=== PATIENT | female | born 1990 | race Caucasian/White ===

== ENCOUNTER 2016-08-08 09:50 | Emergency (ER) | payer SELFPAY ==
[~2016-08-08] VITALS: Ht 152.4 cm; Wt 100.0 kg
[2016-08-08 09:52] VITALS: BP 131/81; PULSE 78; RESP 20; TEMP 98.8; O2SAT 96
[2016-08-08 10:50] LABS: AUTOMATED NEUTROPHIL # 4.8 TH/MM3 (1.8-7.7); BASOPHIL % 0.6 % (0.0-2.0); EOSINOPHIL % 0.5 % (0.0-4.0); HEMATOCRIT 36.8 % (35.0-46.0); HEMO FLAGS DIFF FINAL; LYMPH % 25.7 % (9.0-44.0); LYMPHOCYTE # 1.9 TH/MM3 (1.0-4.8); MEAN CELL VOLUME 82.3 FL (80.0-100.0); MEAN CORPUSCULAR HGB CONC 34.1 % (32.0-36.0); MONO % 7.1 % (0.0-8.0); NEUT % 66.1 % (16.0-70.0); PLATELET COUNT 213 TH/MM3 (150-450); RED BLOOD COUNT 4.47 MIL/MM3 (4.00-5.30); RED CELL DISTRIBUTION WIDTH 13.2 % (11.6-17.2); WHITE BLOOD COUNT 7.3 TH/MM3 (4.0-11.0)
[2016-08-08 10:52] LABS: BACTERIA, URINE RARE /hpf; BLOOD, URINE NEG (NEG); COMMENT (UR) CULT NOT INDICATED; CULTURE IF INDICATED CULT NOT INDICATED; GLUCOSE,URINE NEG (NEG); KETONE, URINE NEG (NEG); MUCUS URINE FEW /lpf (OCC); NITRITE,URINE NEG (NEG); SQUAMOUS EPITHELIAL CELL URINE 9 /hpf (0-5); URINE COLOR YELLOW (YELLW/STRAW)
--- NOTE | 2016-08-08 11:01 | PD ---
HPI Chief Complaint: Abdominal Pain Time Seen by Provider: 10:02 Travel History International Travel<30 days: No Contact w/Intl Traveler<30days: No Traveled to known affect area: No History of Present Illness HPI Patient's 25 years old. She reports right upper quadrant pain for one night. She believes she is due to a positive urine test performed at outside hospital at the end of May (2 months ago) and at that time she was estimated to have been 8 weeks . She's had no vaginal bleeding or discharge. She has no urinary complaint. She has yet to follow with obstetrics. She reports with her prior she developed kidney injury. It feels similar today. PFS Past Medical History Medical History: Denies Significant Hx Influenza Vaccination: No ?: LMP: MAY 2016 : 2 Para: 1 Past Surgical History Other Surgery: Yes (tear duck ) Social History Alcohol Use: No Tobacco Use: No Substance Use: No Allergies-Medications Reported Meds & Prescriptions Reported Meds & Active Scripts Active Keflex (Cephalexin) 250 Mg Cap 250 Mg PO Q6H 5 Days Review of Systems Except as stated in HPI: all other systems reviewed are Neg General / Constitutional: No: Fever Physical Exam Narrative GENERAL: 25 yo F, WNWD, NAD, speaking full sentences SKIN: Warm and dry. HEAD: Atraumatic. Normocephalic. EYES: Pupils equal and round. No scleral icterus. No injection or drainage. ENT: No nasal bleeding or discharge. Mucous membranes pink and moist. NECK: Trachea midline. No JVD. CARDIOVASCULAR: Regular rate and rhythm. RESPIRATORY: No accessory muscle use. Clear to auscultation. Breath sounds equal bilaterally. GASTROINTESTINAL: Soft. Minimal tenderness to percussion R flank. No focal abdominal tenderness. MUSCULOSKELETAL: Extremities without clubbing, cyanosis, or edema. No obvious deformities. NEUROLOGICAL: Awake and alert. No obvious cranial nerve deficits. Motor grossly within normal limits. Five out of 5 muscle strength in the arms and legs. Normal speech. PSYCHIATRIC: Appropriate mood and affect; insight and judgment normal. Data Data Last Documented VS Vital Signs Date Time Temp Pulse Resp B/P Pulse Ox O2 Delivery O2 Flow Rate FiO2 08/08/16 13:53 80 15 123/68 100 08/08/16 09:52 98.8 Room Air VS reviewed Orders Beta Hcg (Quant/Titer) (08/08/16 10:21) Complete Blood Count With Diff (08/08/16 10:21) Comprehensive Metabolic Panel (08/08/16 10:21) Urinalysis - C+S If Indicated (08/08/16 10:21) Iv Access Insert/Monitor (08/08/16 10:21) Us Pelvis (Ques Pr/Ect)W Trans (08/08/16 ) Labs Laboratory Tests Test 08/08/16 10:30 White Blood Count 7.3 TH/MM3 Red Blood Count 4.47 MIL/MM3 Hemoglobin 12.5 GM/DL Hematocrit 36.8 % Mean Corpuscular Volume 82.3 FL Mean Corpuscular Hemoglobin 28.0 PG Mean Corpuscular Hemoglobin 34.1 % Concent Red Cell Distribution Width 13.2 % Platelet Count 213 TH/MM3 Mean Platelet Volume 9.6 FL Neutrophils (%) (Auto) 66.1 % Lymphocytes (%) (Auto) 25.7 % Monocytes (%) (Auto) 7.1 % Eosinophils (%) (Auto) 0.5 % Basophils (%) (Auto) 0.6 % Neutrophils # (Auto) 4.8 TH/MM3 Lymphocytes # (Auto) 1.9 TH/MM3 Monocytes # (Auto) 0.5 TH/MM3 Eosinophils # (Auto) 0.0 TH/MM3 Basophils # (Auto) 0.0 TH/MM3 CBC Comment DIFF FINAL Differential Comment Urine Color YELLOW Urine Turbidity HAZY Urine pH 6.0 Urine Specific [place] 1.023 Urine Protein TRACE mg/dL Urine Glucose (UA) NEG mg/dL Urine Ketones NEG mg/dL Urine Occult Blood NEG Urine Nitrite NEG Urine Bilirubin NEG Urine Urobilinogen LESS THAN 2.0 MG/DL Urine Leukocyte Esterase MOD Urine RBC 4 /hpf Urine WBC 1 /hpf Urine Squamous Epithelial 9 /hpf Cells Urine Bacteria RARE /hpf Urine Mucus FEW /lpf Microscopic Urinalysis Comment CULT NOT INDICATED Sodium Level 138 MEQ/L Potassium Level 3.6 MEQ/L Chloride Level 106 MEQ/L Carbon Dioxide Level 24.3 MEQ/L Anion Gap 8 MEQ/L Blood Urea Nitrogen 5 MG/DL Creatinine 0.55 MG/DL Estimat Glomerular Filtration 137 ML/MIN Rate Random Glucose 95 MG/DL Calcium Level 8.6 MG/DL Total Bilirubin 0.2 MG/DL Aspartate Amino Transf 12 U/L (AST/SGOT) Alanine Aminotransferase 24 U/L (ALT/SGPT) Alkaline Phosphatase 62 U/L Total Protein 6.9 GM/DL Albumin 3.1 GM/DL Human Chorionic Gonadotropin, 1210 MIU/ML Quant MDM Medical Decision Making Medical Screen Exam Complete: Yes Emergency Medical Condition: Yes Medical Record Reviewed: Yes Differential Diagnosis Intrauterine , ectopic , renal failure, UTI, gallbladder disease, hepatic disease Narrative Course CBC & BMP Diagram 08/08/16 10:30 LFTs normal HCG 1210 UA poss bacteriuria As noted, no vaginal bleeding or discharge noted. Pt agrees to follow up with [facility] on Thursday. We discussed possibility of ectopic and patient verbalized understanding as well as return precautions. The patient is resting comfortably and feels better, is alert and in no distress. The patients results and examination findings were discussed. The repeat examination is unremarkable and benign. The history, exam, diagnostic testing, and current condition do not suggest any significant pathology to warrant further testing, continued ED treatment, admission, or surgical evaluation at this point. The vital signs have been stable. The patient does not have uncontrollable pain, intractable vomiting, or other significant symptoms. The patient's condition is stable and appropriate for discharge. The patient will pursue further outpatient evaluation with a primary care physician or other designated or consulting physician as indicated in the discharge instructions. The patient expressed understanding and was agreeable with this plan. Diagnosis Primary Impression: Abdominal pain Qualified Code: R10.11 - Right upper quadrant abdominal pain Additional Impression: Elevated serum hCG Referrals: Miroslava Hernandez MD 2 days Additional Instructions: You have a choice when it comes to health care, and we are glad that you chose [facility]. Hopefully, we have met your expectations on today's visit. You are welcome to return to [facility] at any time, as we are committed to meeting the health care needs of our community. Med/Other Pt SpecificInfo: Prescription(s) given, No Change to Meds Scripts Cephalexin (Keflex)250 Mg [id number] Mg PO Q6H 5 Days Ref 0 Prov:Yomi French MD 08/08/16 Disposition: 01 DISCHARGE HOME Condition: Stable Yomi French MD August 08, 2016 11:01
[2016-08-08 11:07] LABS: ANION GAP 8 MEQ/L (5-15); BICARBONATE 24.3 MEQ/L (21.0-32.0); BLOOD UREA NITROGEN 5 MG/DL (7-18); CHLORIDE 106 MEQ/L (98-107); GLOMERULAR FILTRATION RATE 137 ML/MIN (>89); POTASSIUM 3.6 MEQ/L (3.5-5.1); SODIUM (NA) 138 MEQ/L (136-145)
[2016-08-08 11:25] LABS: ALKALINE PHOSPHATASE 62 U/L (45-117); ALT (GPT) 24 U/L (10-53); AST (GOT) 12 U/L (15-37); BETA HCG QUANT 1210 MIU/ML (0-5); TOTAL BILIRUBIN ADULT 0.2 MG/DL (0.2-1.0)
[2016-08-08 13:53] VITALS: BP 123/68; PULSE 80; RESP 15; O2SAT 100
--- NOTE | 2016-08-08 14:30 | RADRPT ---
EXAM DATE/TIME: 08/08/2016 13:10 [facility] COMPARISON: No previous studies available for comparison. INDICATIONS : Pelvic pain. LAB(S): Beta-hC,210 MEDICAL HISTORY : Abdominal and pelvic pain. SURGICAL HISTORY : Tear duck surgery. ENCOUNTER: Initial ACUITY: 2 days PAIN SCORE: 8/10 LOCATION: Bilateral pelvis MEASUREMENTS: UTERUS: 8.8 x 6.1 x 5.0 cm ENDOMETRIAL STRIPE: 16 mm RIGHT OVARY: 2.6 x 2.9 x 2.5 cm LEFT OVARY: 3.6 x 3.1 x 1.4 cm FREE FLUID: Yes posterior cul de sac CROWN RUMP LENGTH: Nonvisualized = WKS DAYS FHR: Nonvisualized BPM FINDINGS: UTERUS: Small gestational sac measures 5 x 4 x 5 mm. No-year-old sac or pole. Hypoechoic area adjacent to the endometrium measures 4 x 2 x 4 mm. RIGHT OVARY: complex cystic lesion measures 14 x 12 x 10 mm. LEFT OVARY: Ovary contains no mass or significant cystic lesion. MISCELLANEOUS: Trace free fluid. CONCLUSION: 1. Small gestational sac versus pseudo-gestational sac measuring 5 mm. No yolk sac or pole seen at this time. This could be related to an early versus pseudo-. Ectopic not seen but not excluded. Close interval followup. 2. Possible small subchorionic hemorrhage measuring 4 x 2 x 4 mm. 3. Trace pelvic free fluid. 4. Complex cyst versus focal luteal cyst in the right ovary measuring 14 mm. Pola Alberto MD on August 08, 2016 at 14:26 Board Certified Radiologist. This report was verified electronically.
[2016-08-08] MEDS ORDERED: CEPH-459 PO (14:40)
== END 2016-08-08 15:12 | disposition home or self-care (01) ==
LOC: NEPE 09:50
DX: R10.11 Right upper quadrant pain (principal)
CPT/HCPCS: 76700; 76817; 80053; 81001; 84702; 85025; 99284

== ENCOUNTER 2016-08-12 15:27 | Emergency (ER) | payer SELFPAY ==
[~2016-08-12] VITALS: Ht 152.4 cm; Wt 100.0 kg
[~2016-08-12 15:27] MED LIST: CEPH-459 PO
[2016-08-12 15:29] VITALS: BP 134/88; PULSE 79; RESP 15; TEMP 98.2; O2SAT 99
--- NOTE | 2016-08-12 15:40 | PD ---
Physical Exam Date Seen by Provider: August 12, 2016 Time Seen by Provider: 15:38 Narrative 25 yo female here for recheck of . Seen here last week and told they could not see HR. recommended recheck. She comes here today to get checked. Complains of side pain. States having a rash secondary to caterpillar. Vitals sign stable. Patient awaiting bed placement. Data Data Last Documented VS Vital Signs Date Time Temp Pulse Resp B/P Pulse Ox O2 Delivery O2 Flow Rate FiO2 08/12/16 15:29 98.2 79 15 134/88 99 MDM Medical Record Reviewed: Yes Supervised Visit with SERG: No Eugenio Hurtado August 12, 2016 15:39
--- NOTE | 2016-08-12 16:31 | PD ---
HPI Chief Complaint: Related Problem Time Seen by Provider: 16:21 Travel History International Travel<30 days: No Contact w/Intl Traveler<30days: No Traveled to known affect area: No History of Present Illness HPI 25-year-old here for repeat checkup. Patient states that she was seen here on 08/08 with right sided abdominal pain. She was found to be . Her beta Quant was 1210. She had a ultrasound showing a gestational sac versus pseudo-gestational sac measuring 5 mm but no evidence of yolk sac or pole. Could not exclude ectopic . Possible small subchorionic hemorrhage measuring 4 x 2 x 4 mm with trace free fluid. In the interim patient has not had any pain. No vaginal bleeding. She presents back to the emergency department for repeat beta Quant. PFSH Past Medical History ?: LMP: 06/10/16 : 2 Para: 1 Past Surgical History Other Surgery: Yes (tear duck ) Social History Alcohol Use: No Tobacco Use: No Substance Use: No Allergies-Medications Reported Meds & Prescriptions Reported Meds & Active Scripts Active Keflex (Cephalexin) 250 Mg Cap 250 Mg PO Q6H 5 Days Review of Systems Except as stated in HPI: all other systems reviewed are Neg Physical Exam Narrative GENERAL: Nervous but well-appearing female in no acute distress SKIN: Focused skin assessment warm/dry. HEAD: Normocephalic. EYES: No scleral icterus. No injection or drainage. ENT: Mucous membranes pink and moist. NECK: Supple CARDIOVASCULAR: Regular rate and rhythm. RESPIRATORY: No accessory muscle use. GASTROINTESTINAL: Abdomen soft, non-tender, nondistended MUSCULOSKELETAL: Normal gait NEUROLOGICAL: Awake and alert. Normal speech. PSYCHIATRIC: Nervous Data Data Last Documented VS Vital Signs Date Time Temp Pulse Resp B/P Pulse Ox O2 Delivery O2 Flow Rate FiO2 08/12/16 15:29 98.2 79 15 134/88 99 Orders Beta Hcg (Quant/Titer) (08/12/16 15:49) [facility] Medical Decision Making Medical Screen Exam Complete: Yes Emergency Medical Condition: Yes Medical Record Reviewed: Yes Differential Diagnosis 25-year-old here for repeat beta Quant after having pain last week in the right side of the abdomen. Differential includes , ectopic , missed AB, inevitable AB, blighted ovum. Narrative Course Repeat beta Quant was ordered and remain pending at time this dictation. Patient signed out to oncoming provider waiting results of same. Kaila Pemberton MD August 12, 2016 16:30
[2016-08-12 17:27] LABS: BETA HCG QUANT 3579 MIU/ML (0-5)
--- NOTE | 2016-08-12 17:33 | PD ---
Physical Exam Date Seen by Provider: August 12, 2016 Narrative Patient is here for a repeat beta hCG. She was here on 08/08 had a serum hCG of 1210. She is asymptomatic from an OB standpoint. Data Data Last Documented VS Vital Signs Date Time Temp Pulse Resp B/P Pulse Ox O2 Delivery O2 Flow Rate FiO2 08/12/16 15:29 98.2 79 15 134/88 99 Orders Beta Hcg (Quant/Titer) (08/12/16 15:49) Labs Laboratory Tests Test 08/12/16 16:32 Human Chorionic Gonadotropin, 3579 MIU/ML Quant MDM Supervised Visit with ESRG: No Narrative Course Beta hCG is 3579. Diagnosis Primary Impression: Qualified Code: Z3A.09 - 9 weeks gestation of Patient Instructions: First Trimester (ED), General Instructions Scripts No Active Prescriptions or Reported Meds Disposition: DISCHARGE HOME Condition: Stable Sneha Ram MD August 12, 2016 17:32
== END 2016-08-12 17:44 | disposition home or self-care (01) ==
LOC: NEPD 15:27
DX: Z04.8 Encounter for examination and observation for other specified reasons (principal); O26.891 Other specified pregnancy related conditions, first trimester; Z3A.09 9 weeks gestation of pregnancy
CPT/HCPCS: 84702; 99283

== ENCOUNTER 2016-10-24 23:29 | Emergency (ER) | payer MEDICAID ==
[~2016-10-24] VITALS: Ht 157.5 cm; Wt 105.0 kg
[2016-10-24 23:37] VITALS: BP 137/83; PULSE 134; RESP 18; TEMP 98.2; O2SAT 97
[2016-10-25] MEDS ORDERED: ACETAMINOPHEN 325 MG TAB PO ONE (01:00)
[2016-10-25] MEDS ORDERED: SODIUM CHLOR 0.9% 1000 ML INJ 1,000 ML IV ONE (01:00)
[2016-10-25 01:22] LABS: AUTOMATED NEUTROPHIL # 5.8 TH/MM3 (1.8-7.7); BASOPHIL % 0.7 % (0.0-2.0); EOSINOPHIL % 0.4 % (0.0-4.0); HEMATOCRIT 36.1 % (35.0-46.0); HEMO FLAGS DIFF FINAL; LYMPH % 9.9 % (9.0-44.0); LYMPHOCYTE # 0.7 TH/MM3 (1.0-4.8); MEAN CELL VOLUME 81.7 FL (80.0-100.0); MEAN CORPUSCULAR HEMOGLOBIN 27.3 PG (27.0-34.0); MEAN CORPUSCULAR HGB CONC 33.4 % (32.0-36.0); MONO % 6.7 % (0.0-8.0); NEUT % 82.3 % (16.0-70.0); PLATELET COUNT 185 TH/MM3 (150-450); RED BLOOD COUNT 4.42 MIL/MM3 (4.00-5.30); RED CELL DISTRIBUTION WIDTH 12.7 % (11.6-17.2); WHITE BLOOD COUNT 7.1 TH/MM3 (4.0-11.0)
[2016-10-25 01:36] LABS: ALT (GPT) 12 U/L (10-53); ANION GAP 9 MEQ/L (5-15); AST (GOT) 9 U/L (15-37); BLOOD UREA NITROGEN 5 MG/DL (7-18); CHLORIDE 103 MEQ/L (98-107); GLOMERULAR FILTRATION RATE 155 ML/MIN (>89); POTASSIUM 3.6 MEQ/L (3.5-5.1); SODIUM (NA) 137 MEQ/L (136-145)
[2016-10-25 01:38] LABS: ALKALINE PHOSPHATASE 56 U/L (45-117); TOTAL BILIRUBIN ADULT 0.2 MG/DL (0.2-1.0)
[2016-10-25 01:53] LABS: BACTERIA, URINE FEW /hpf; BLOOD, URINE NEG (NEG); COMMENT (UR) CULTURE INDICATED; CULTURE IF INDICATED CULTURE INDICATED; GLUCOSE,URINE NEG (NEG); KETONE, URINE TRACE mg/dL (NEG); MUCUS URINE FEW /lpf (OCC); NITRITE,URINE NEG (NEG); SQUAMOUS EPITHELIAL CELL URINE 10 /hpf (0-5); TRANSITIONAL EPI CELLS, URINE <1 /hpf; URINE COLOR YELLOW (YELLW/STRAW)
--- NOTE | 2016-10-25 02:14 | RADRPT ---
EXAM DATE/TIME: 10/25/2016 01:30 [facility] COMPARISON: No previous studies available for comparison. INDICATIONS : Lower extremity tingling. MEDICAL HISTORY : None. SURGICAL HISTORY : tear duct as a child ENCOUNTER: Initial ACUITY: 1 day PAIN SCORE: 2/10 LOCATION: Bilateral legs TECHNIQUE: Multiplanar multisequence MRI of the lumbar spine was performed without contrast. FINDINGS: The most caudal appearing lumbar vertebra is numbered as L5. VERTEBRAE: Homogeneous signal. Normal alignment. CONUS: Normal level and configuration. T12-L1: The thecal sac has a normal diameter. No evidence of disc bulge or protrusion. The neural foramina are patent bilaterally. L1-L2: The thecal sac has a normal diameter. No evidence of disc bulge or protrusion. The neural foramina are patent bilaterally. L2-L3: The thecal sac has a normal diameter. No evidence of disc bulge or protrusion. The neural foramina are patent bilaterally. L3-L4: The thecal sac has a normal diameter. No evidence of disc bulge or protrusion. The neural foramina are patent bilaterally. Mild to moderate facet arthropathy. L4-L5: The thecal sac has a normal diameter. No evidence of disc bulge or protrusion. The neural foramina are patent bilaterally. Moderate facet arthropathy. L5-S1: The thecal sac has a normal diameter. No evidence of disc bulge or protrusion. The neural foramina are patent bilaterally. Mild facet arthropathy. CONCLUSION: 1. Facet arthropathy lower lumbar spine. 2. Otherwise unremarkable MRI lumbar spine. Pola Alberto MD on October 25, 2016 at 2:11 Board Certified Radiologist. This report was verified electronically.
[2016-10-25] MEDS ORDERED: MACR100C2 PO (03:08)
--- NOTE | 2016-10-25 03:08 | PD ---
HPI Chief Complaint: Numbness/Tingling Time Seen by Provider: 00:37 Travel History International Travel<30 days: No Contact w/Intl Traveler<30days: No Traveled to known affect area: No History of Present Illness HPI Patient is a 26-year-old female, 16 weeks , who comes in complaining of numbness of her legs. She says that this happened during her previous and she was told that she had a kidney problem because of the way the baby was sitting. She denies any pain to her back. She denies any injury. She says she is able to walk, her legs just feel funny. She denies any incontinence. She denies any fever or chills. She says her legs are hurting her and she has been taking Tylenol at home. She denies any abdominal pain, nausea, vomiting. [facility] Past Medical History Medical History: Denies Significant Hx ?: LMP: 06/10/16 : 2 Para: 1 Past Surgical History Other Surgery: Yes (tear duck ) Social History Alcohol Use: No Tobacco Use: No Substance Use: No Allergies-Medications (Allergen,Severity, Reaction): Coded Allergies: Ibuprofen (Verified Allergy, Unknown, 10/25/16) Penicillin (Verified Allergy, Unknown, 10/25/16) Tramadol (Verified Allergy, Unknown, 10/25/16) Vicodin (Verified Allergy, Unknown, 10/25/16) Reported Meds & Prescriptions Reported Meds & Active Scripts Active No Active Prescriptions or Reported Medications Review of Systems Except as stated in HPI: all other systems reviewed are Neg General / Constitutional: No: Fever, Chills HENT: No: Headaches, Lightheadedness Cardiovascular: No: Chest Pain or Discomfort Respiratory: No: Shortness of Breath Gastrointestinal: No: Nausea, Vomiting, Abdominal Pain Genitourinary: No: Incontinence, Pelvic Pain, Flank Pain Musculoskeletal: Positive: Pain Skin: No Rash, No Change in Pigmentation Neurologic: Positive: Paresthesia, No: Incontinence Physical Exam Narrative GENERAL: Awake and alert, in no acute distress. SKIN: Focused skin assessment warm/dry. HEAD: Atraumatic. Normocephalic. EYES: Pupils equal and round. No scleral icterus. ENT: Mucous membranes pink and moist. NECK: Trachea midline. No JVD. CARDIOVASCULAR: Regular rate and rhythm. No murmur appreciated. RESPIRATORY: No accessory muscle use. Clear to auscultation. Breath sounds equal bilaterally. GASTROINTESTINAL: Abdomen soft, non-tender, nondistended. MUSCULOSKELETAL: No obvious deformities. No clubbing. No cyanosis. No edema. No CVA tenderness. No tenderness to the cervical, thoracic, lumbar spine. Able to fully range both legs. Pedal pulses intact. NEUROLOGICAL: Awake and alert. No obvious cranial nerve deficits. Motor grossly within normal limits. Normal speech. Decreased and light touch sensation to both legs. PSYCHIATRIC: Appropriate mood and affect; insight and judgment normal. Data Data Last Documented VS Vital Signs Date Time Temp Pulse Resp B/P Pulse Ox O2 Delivery O2 Flow Rate FiO2 10/24/16 23:37 98.2 134 18 137/83 97 Room Air Orders Iv Access Insert/Monitor (10/25/16 00:59) Complete Blood Count With Diff (10/25/16 00:59) Comprehensive Metabolic Panel (10/25/16 00:59) Mri L Spine W/O Contrast (10/25/16 ) Urinalysis - C+S If Indicated (10/25/16 00:59) Sodium Chlor 0.9% 1000 Ml Inj (Ns 1000 M (10/25/16 01:00) Acetaminophen (Tylenol) (10/25/16 01:00) Urine Culture (10/25/16 01:13) Labs Laboratory Tests Test 10/25/16 10/25/16 01:05 01:13 White Blood Count 7.1 TH/MM3 Red Blood Count 4.42 MIL/MM3 Hemoglobin 12.1 GM/DL Hematocrit 36.1 % Mean Corpuscular Volume 81.7 FL Mean Corpuscular Hemoglobin 27.3 PG Mean Corpuscular Hemoglobin 33.4 % Concent Red Cell Distribution Width 12.7 % Platelet Count 185 TH/MM3 Mean Platelet Volume 8.8 FL Neutrophils (%) (Auto) 82.3 % Lymphocytes (%) (Auto) 9.9 % Monocytes (%) (Auto) 6.7 % Eosinophils (%) (Auto) 0.4 % Basophils (%) (Auto) 0.7 % Neutrophils # (Auto) 5.8 TH/MM3 Lymphocytes # (Auto) 0.7 TH/MM3 Monocytes # (Auto) 0.5 TH/MM3 Eosinophils # (Auto) 0.0 TH/MM3 Basophils # (Auto) 0.0 TH/MM3 CBC Comment DIFF FINAL Differential Comment Sodium Level 137 MEQ/L Potassium Level 3.6 MEQ/L Chloride Level 103 MEQ/L Carbon Dioxide Level 25.0 MEQ/L Anion Gap 9 MEQ/L Blood Urea Nitrogen 5 MG/DL Creatinine 0.49 MG/DL Estimat Glomerular Filtration 155 ML/MIN Rate Random Glucose 88 MG/DL Calcium Level 9.0 MG/DL Total Bilirubin 0.2 MG/DL Aspartate Amino Transf 9 U/L (AST/SGOT) Alanine Aminotransferase 12 U/L (ALT/SGPT) Alkaline Phosphatase 56 U/L Total Protein 7.3 GM/DL Albumin 2.8 GM/DL Urine Color YELLOW Urine Turbidity HAZY Urine pH 6.0 Urine Specific [place] 1.030 Urine Protein TRACE mg/dL Urine Glucose (UA) NEG mg/dL Urine Ketones TRACE mg/dL Urine Occult Blood NEG Urine Nitrite NEG Urine Bilirubin NEG Urine Urobilinogen LESS THAN 2.0 MG/DL Urine Leukocyte Esterase LARGE Urine RBC 4 /hpf Urine WBC 34 /hpf Urine Squamous Epithelial 10 /hpf Cells Urine Transitional Epithelial <1 /hpf Cells Urine Bacteria FEW /hpf Urine Mucus FEW /lpf Microscopic Urinalysis Comment CULTURE INDICATED MDM Medical Decision Making Medical Screen Exam Complete: Yes Emergency Medical Condition: Yes Medical Record Reviewed: Yes Differential Diagnosis Cord compression versus electrolyte abnormality versus dehydration versus UTI versus pyelonephritis Narrative Course Patient is a 26-year-old female comes in complaining of numbness of both of her legs. Exam shows decreased light touch sensation bilaterally to the legs. IV established, labs sent. Labs show no acute abnormalities. Urinalysis is positive for bacteria. MRI of the lumbar spine shows no acute abnormalities, no cord compression seen. Last 24 hours Impressions Lumbar Spine MRI 10/25/16 0000 Signed Impressions: Service Date/Time: Tuesday, October 25, 2016 01:30 - CONCLUSION: 1. Facet arthropathy lower lumbar spine. 2. Otherwise unremarkable MRI lumbar spine. Pola Alberto MD Patient given IV fluids and Tylenol. She is resting comfortably on the stretcher. She is offered admission for further workup for these neurologic symptoms, however she declines at this time. She'll be discharged with a prescription for Macrobid. She is advised follow-up with her doctors. Advised to return to the ED as needed for any worsening symptoms. Diagnosis Primary Impression: Urinary tract infection affecting Additional Impression: Paresthesias Patient Instructions: General Instructions, Paresthesia (ED), Urinary Tract Infection in (ED) Additional Instructions: Follow-up with your doctor. Drink plenty of fluids. Take all of your antibiotic. Return to the ED as needed for any worsening symptoms. Scripts Nitrofurantoin Monohydrate Macrocrystals (Macrobid)100 Mg [id number] Mg PO BID 7 Days Ref 0 Prov:Lizabeth Wilcox MD 10/25/16 Disposition: 01 DISCHARGE HOME Condition: Stable Lizabeth Wilcox MD Oct 25, 2016 03:08
[2016-10-25 03:15] VITALS: BP 131/66; RESP 16; TEMP 98.5
== END 2016-10-25 03:16 | disposition home or self-care (01) ==
LOC: NEPC 23:29
DX: O23.42 Unspecified infection of urinary tract in pregnancy, second trimester (principal); R20.9 Unspecified disturbances of skin sensation; Z3A.16 16 weeks gestation of pregnancy
CPT/HCPCS: 72148; 80053; 81001; 85025; 87086; 96360; 99285; J7030

== ENCOUNTER 2017-01-01 16:46 | Emergency (ER) | payer MEDICAID ==
[~2017-01-01] VITALS: Ht 157.5 cm; Wt 106.6 kg
[~2017-01-01 16:46] MED LIST changes: -CEPH-459 PO; +MACR100C2 PO
--- NOTE | 2017-01-01 18:25 | PD ---
HPI Chief Complaint sharp bilateral lower quadrant pain Date Seen: Jan 01, 2017 Time Seen: 18:00 Travel History International Travel<30 Days: No Contact w/Intl Traveler<30Days: No Known Affected Area: No History of Present Illness HPI Pt is a 26 y/o with IUP at 25.4 wks who presents with c/o sharp bilateral lower abdominal pain. Pt states pain is fairly constant, worse with standing/ walking. Pt denies contractions, vb, lof. +FM. Pt denies increased vaginal discharge, vaginal irritation. 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 Weeks Gestation: 25 Para: 1 : 2 History Past Medical History Medical History: Denies Significant Hx Obstetric History Obstetric History 01/26/16 FTSVD at 39+ wks, reports she has issues with kidney during (hydronephrosis?) Past Surgical History Surgical History: No Previous Surgery Family History Family History: Negative Social History Alcohol Use: No Tobacco Use: No Substance Abuse: No Allergies-Medications (Allergen,Severity, Reaction): Coded Allergies: acetaminophen (Unverified Allergy, Unknown, 10/28/16) hydrocodone (Unverified Allergy, Unknown, 10/28/16) ibuprofen (Unverified Allergy, Unknown, 10/28/16) penicillin G (Unverified Allergy, Unknown, 10/28/16) tramadol (Unverified Allergy, Unknown, 10/28/16) Home Meds Active Scripts Nitrofurantoin Monohydrate Macrocrystals (Macrobid) 100 Mg Capsule, 100 MG PO BID for Infection for 7 Days, CAP 0 Refills Prov:Lizabeth Wilcox MD 10/25/16 Review of Systems General / Constitutional: No: Fever, Weight Gain, Weight Loss, Chills, Other Eyes: No: Diploplia, Blurred Vision, Visual changes, Pain, Photophobia, Other HENT: No: Headaches, Vertigo, Dental Difficulties, Lightheadedness, Other Cardiovascular: No: Irregular Rhythm, Chest Pain or Discomfort, Palpitations, Tachycardia, Syncope, Varicosities, Edema, Cyanosis, Other Respiratory: No: Cough, Short of Breath, Wheezing, Other Gastrointestinal: Abdominal Pain Genitourinary: Pelvic Pain Musculoskeletal: No: Limited ROM, Weakness, Cramping, Edema, Pain, Other Skin: No Rash, No Itching, No Dryness, No Lumps, No Change in Pigmentation, No Change in Nails, No Alopecia, No Lesions, No Breast Lumps, No Breast Tenderness , No Breast Swelling, No Other Neurologic: No: Weakness, Dizziness, Syncope, Focal Abnormalities, Coordination Problem, Headache, Slurred Speech, Seizures, Other Psychiatric: No: Anxiety, Depression, Suicidal Ideations, Disorder of Thought, Mood Disorder, Substance Abuse, Homicidal Ideation, Other Endocrine: No: Heat Intolerance, Cold Intolerance, Polydipsia, Polyuria, Other Hematologic/Lymphatic: No Easy Bruising, No Lymph Node Enlargement, No Other Physical Exam 111/60, 87 Narrative GENERAL: Well-nourished, well-developed patient. SKIN: Warm and dry. HEAD: Normocephalic and atraumatic. EYES: No scleral icterus. No injection or drainage. ENT: No nasal drainage noted. Mucous membranes pink. Airway patent. NECK: Supple, trachea midline. No JVD. CARDIOVASCULAR: Regular rate and rhythm without murmurs, gallops, or rubs. RESPIRATORY: Breath sounds equal bilaterally. No accessory muscle use. ABDOMEN/GI: Abdomen soft, mildly tender bilateral lower quadrants, bowel sounds present, no rebound, no guarding Gravid GENITOURINARY: External Genitalia: intact and normal in appearance BUS glands: [wnl] Cervix: posterior Dilatation: closed Effacement: long Station: high Presentation: - Membranes: intact Uterine Contractions: no FHT's: Category: [ ] Baseline: [140] Reactive: no, reassuring for gest age Variability: mod Decels: [-] EXTREMITIES: No cyanosis or edema. BACK: Nontender without obvious deformity. No CVA tenderness. NEUROLOGICAL: Awake and alert. Motor and sensory grossly within normal limits. Five out of 5 muscle strength in all muscle groups. Normal speech. Data Data Vital Signs Reviewed: Yes Orders Orders Vital Signs (Adult) .ON ADMISSION (01/01/17 18:10) ^ Labor Status (01/01/17 18:10) Labs urine dip: trace protein, trace ketones, mod leuk MDM Narrative Course / MDM 26 y/o with IUP at 25.4 wks with bilateral lower quadrant pain c/w round ligament pain recommend support belt, tylenol, warm compresses or baths return with worsening symptoms Diagnosis Diagnosis: Primary Impression: Pain of round ligament affecting , antepartum Additional Impression: 25 weeks gestation of Disposition: 01 DISCHARGE HOME Condition: Stable Patient Instructions: General Instructions, Early Labor Signs (ED) Remington Laws MD Jan 01, 2017 18:25
== END 2017-01-01 18:44 | disposition home or self-care (01) ==
LOC: HOBED 16:46
DX: O26.892 Other specified pregnancy related conditions, second trimester (principal); R10.2 Pelvic and perineal pain; Z3A.25 25 weeks gestation of pregnancy
CPT/HCPCS: 99284

== ENCOUNTER 2017-02-08 04:41 | Emergency (ER) | payer MEDICAID ==
[~2017-02-08] VITALS: Ht 157.5 cm; Wt 106.6 kg
[2017-02-08] MEDS ORDERED: FLINT2 CHEW (05:20)
[2017-02-08 06:01] LABS: BLOOD, URINE NEG (NEG); GLUCOSE,URINE NEG (NEG); KETONE, URINE TRACE mg/dL (NEG); MUCUS URINE FEW /lpf (OCC); NITRITE,URINE NEG (NEG); PH, URINE 6.5 (5.0-8.5); SQUAMOUS EPITHELIAL CELL URINE 1 /hpf (0-5); URINE COLOR YELLOW (YELLW/STRAW)
[2017-02-08 06:02] LABS: COMMENT (UR) CULT NOT INDICATED; CULTURE IF INDICATED CULT NOT INDICATED
[2017-02-08] MEDS ORDERED: LACTATED RINGER'S 1000 ML INJ 1,000 ML IV SCH (06:18)
--- NOTE | 2017-02-08 06:18 | PD ---
HPI Chief Complaint Contractions abdominal pain Date Seen: Feb 08, 2017 Time Seen: 06:10 Travel History International Travel<30 Days: No Contact w/Intl Traveler<30Days: No Known Affected Area: No History of Present Illness HPI This 26-year-old white female at 31 weeks who goes to the [facility] OB clinic. She presents combining of abdominal pain and contractions. There on the monitor she is jesús every 3 minutes very mildly but she says that it hurts quite a bit heart rate tracing is reactive and she has no bleeding or leakage Weeks Gestation: 31 Para: 1 : 2 Last Menstrual Period: Feb 08, 2017 History Obstetric History Obstetric History One vaginal delivery Social History Alcohol Use: No Tobacco Use: No Substance Abuse: No Allergies-Medications (Allergen,Severity, Reaction): Coded Allergies: amoxicillin (Verified Allergy, Severe, 02/08/17) acetaminophen (Unverified Allergy, Unknown, 02/08/17) hydrocodone (Unverified Allergy, Unknown, 02/08/17) ibuprofen (Unverified Allergy, Unknown, 02/08/17) penicillin G (Unverified Allergy, Unknown, 02/08/17) tramadol (Unverified Allergy, Unknown, 02/08/17) Home Meds Reported Medications Rweo-Bupxbnpx-Xwsawdty (Flintstones Complete) 60 Mg Tab, 1 TAB CHEW DAILY for Nutritional Supplement, #30 TAB 0 Refills 02/08/17 Discontinued Scripts Nitrofurantoin Monohydrate Macrocrystals (Macrobid) 100 Mg Capsule, 100 MG PO BID for Infection for 7 Days, CAP 0 Refills Prov:Lizabeth Wilcox MD 10/25/16 Review of Systems General / Constitutional: No: Fever, Weight Gain, Chills, Other Eyes: No: Diploplia, Blurred Vision, Visual changes, Pain, Photophobia HENT: No: Headaches, Vertigo, Lightheadedness Cardiovascular: No: Irregular Rhythm, Chest Pain or Discomfort, Palpitations, Tachycardia, Syncope, Varicosities, Edema, Cyanosis Respiratory: No: Cough, Short of Breath, Other Gastrointestinal: Abdominal Pain, No: Nausea, Vomiting, Diarrhea Genitourinary: No: Decreased Urinary Output, Oliguria Musculoskeletal: No: Limited ROM, Weakness, Cramping, Edema, Pain Skin: No Rash, No Itching, No Dryness, No Lumps, No Change in Pigmentation, No Change in Nails, No Alopecia, No Lesions Neurologic: No: Weakness, Dizziness, Syncope, Focal Abnormalities, Coordination Problem, Headache, Slurred Speech, Seizures Psychiatric: No: Depression, Suicidal Ideations, Homicidal Ideation Endocrine: No: Heat Intolerance, Cold Intolerance, Polydipsia, Polyuria, Other Physical Exam Narrative GENERAL: Well-nourished, well-developed patient. SKIN: Warm and dry. HEAD: Normocephalic and atraumatic. EYES: No scleral icterus. No injection or drainage. ENT: No nasal drainage noted. Mucous membranes pink. Airway patent. NECK: Supple, trachea midline. No JVD. CARDIOVASCULAR: Regular rate and rhythm without murmurs, gallops, or rubs. RESPIRATORY: Breath sounds equal bilaterally. No accessory muscle use. BREASTS: Bilateral exam showed no masses , no retractions, no nipple discharge. ABDOMEN/GI: Abdomen soft, non-tender, bowel sounds present, no rebound, no guarding Gravid to [31-] weeks size Fundal Height: [31-] GENITOURINARY: External Genitalia: intact and normal in appearance BUS glands: [-] Cervix: [closed at int os-] Dilatation: [0-] Effacement: [thick-] Station: [-3] Membranes: [intact ] Uterine Contractions: [q 3 min-] FHT's: Category: [1-] Baseline: [-133] Reactive: [yes-] Variability: [mod-] Decels: [0-] EXTREMITIES: No cyanosis or edema. BACK: Nontender without obvious deformity. No CVA tenderness. NEUROLOGICAL: Awake and alert. Motor and sensory grossly within normal limits. Five out of 5 muscle strength in all muscle groups. Normal speech. Data Data Orders Orders Urinalysis - C+S If Indicated (02/08/17 05:36) Labs Laboratory Tests Test 02/08/17 05:06 Urine Color YELLOW Urine Turbidity CLEAR Urine pH 6.5 Urine Specific [place] 1.029 Urine Protein TRACE Urine Glucose (UA) NEG Urine Ketones TRACE Urine Occult Blood NEG Urine Nitrite NEG Urine Bilirubin NEG Urine Urobilinogen LESS THAN 2.0 Urine Leukocyte Esterase TRACE Urine RBC 1 Urine WBC 2 Urine Squamous Epithelial Cells 1 Urine Mucus FEW Microscopic Urinalysis Comment CULT NOT INDICATED MDM Interpretation(s) 26-year-old white female at 31 weeks who presents planning of contractions. Denies bleeding or ruptured membranes. She is jesús on the monitor very small contractions but she says they hurt and says she's been doing this for a couple days was gotten worse. heart rate tracing is reactive. Plan the patient liter IV fluid subcutaneous terbutaline and if necessary some IV fentanyl for tocolyse Plan Plan the above-mentioned measures to decrease contraction activity, once that is then accomplished and the patient's ability discharged home to bedrest, increase oral fluids, Tylenol when necessary. And heating pad or hot bath to relieve symptoms. Diagnosis Diagnosis: Primary Impression: Premature uterine contractions in third trimester, antepartum Disposition: DISCHARGE HOME Condition: Stable Selvin Jeong II, MD Feb 08, 2017 06:18
[2017-02-08] MEDS ORDERED: TERBUTALINE INJ 1 MG/ML AMP ONE (06:30)
== END 2017-02-08 08:23 | disposition home or self-care (01) ==
LOC: HOBED 04:41
DX: O26.893 Other specified pregnancy related conditions, third trimester (principal); Z3A.31 31 weeks gestation of pregnancy
CPT/HCPCS: 81001; 96372; 96374; 99285; J3010; J3105; J7120; 96375

== ENCOUNTER 2017-03-03 14:19 | Emergency (ER) | payer MEDICAID ==
[~2017-03-03 14:19] MED LIST changes: +FLINT2 CHEW; -MACR100C2 PO
[2017-03-03 14:20] VITALS: BP 138/86; PULSE 104; RESP 18; TEMP 98.2; O2SAT 96
--- NOTE | 2017-03-03 14:48 | PD ---
HPI Chief Complaint: Allergic/Adverse Reaction Time Seen by Provider: 14:36 Travel History International Travel<30 days: No Contact w/Intl Traveler<30days: No Traveled to known affect area: No History of Present Illness HPI 26-year-old female complains of chest tightness and feeling shaky and lower extremity swelling. Patient is 34 weeks . Patient was seen by OB physician this morning. Patient received a flu shot this morning. Patient states that she started having chest discomfort feeling shaky with increasing lower extremity swelling this afternoon. Patient denies any headache. Patient denies any problems swallowing. Patient denies any shortness of breath. Patient denies any abdominal pain. Patient denies any vaginal discharge or bleeding. Patient states that the examination was normal this morning. Patient states that the fetus is active. PFSH Past Medical History ?: : 2 Para: 1 Past Surgical History Other Surgery: Yes (tear duck ) Social History Alcohol Use: No Tobacco Use: No Substance Use: No Allergies-Medications (Allergen,Severity, Reaction): Coded Allergies: amoxicillin (Verified Allergy, Severe, 02/08/17) acetaminophen (Unverified Allergy, Unknown, 02/08/17) hydrocodone (Unverified Allergy, Unknown, 02/08/17) ibuprofen (Unverified Allergy, Unknown, 02/08/17) penicillin G (Unverified Allergy, Unknown, 02/08/17) tramadol (Unverified Allergy, Unknown, 02/08/17) Reported Meds & Prescriptions Reported Meds & Active Scripts Active Reported Flintstones Complete (Iron/Minerals/Multivitamins) 60 Mg Tab 1 Tab CHEW DAILY Review of Systems General / Constitutional: No: Fever Eyes: No: Visual changes HENT: No: Headaches Cardiovascular: Positive: Chest Pain or Discomfort Respiratory: No: Shortness of Breath Gastrointestinal: No: Abdominal Pain Genitourinary: No: Dysuria Musculoskeletal: No: Pain Skin: No Rash Neurologic: No: Weakness Psychiatric: No: Depression Endocrine: No: Polydipsia Hematologic/Lymphatic: No: Easy Bruising Physical Exam Narrative GENERAL: Well-nourished, well-developed patient. SKIN: Focused skin assessment warm/dry. No rash on the skin. No hives. HEAD: Normocephalic. EYES: No scleral icterus. No injection or drainage. Throat: Nonerythematous. No edema. NECK: Supple, trachea midline. No JVD or lymphadenopathy. CARDIOVASCULAR: Regular rate and rhythm without murmurs, gallops, or rubs. RESPIRATORY: Breath sounds equal bilaterally. No accessory muscle use. No stridor or wheezes. GASTROINTESTINAL: Abdomen soft, non-tender, nondistended. MUSCULOSKELETAL: No cyanosis. Patient has +1 pedal edema lower extremity. BACK: Nontender without obvious deformity. No CVA tenderness. Neurologic exam normal. Data Data Last Documented VS Vital Signs Date Time Temp Pulse Resp B/P (MAP) Pulse Ox O2 Delivery O2 Flow Rate FiO2 03/03/17 14:20 98.2 104 18 138/86 (103) 96 Room Air MDM Medical Decision Making Medical Screen Exam Complete: Yes Emergency Medical Condition: Yes Differential Diagnosis Differential diagnosis including anxiety, allergic reaction. Narrative Course 26-year-old female with chest discomfort, feeling shaky, increasing lower extremity edema. Patient is 34 weeks and had a flu shot this morning. I do not see any evidence of allergic reaction at this point. Diagnosis Primary Impression: Atypical chest pain Patient Instructions: General Instructions Additional Instructions: Follow-up with personal physician. Return if worse. Med/Other Pt SpecificInfo: No Change to Meds Disposition: 01 DISCHARGE HOME Condition: Stable Tommie Paredes MD Mar 03, 2017 14:48
== END 2017-03-03 15:31 | disposition home or self-care (01) ==
LOC: NEPE 14:19
DX: O26.893 Other specified pregnancy related conditions, third trimester (principal); R07.89 Other chest pain; M79.89 Other specified soft tissue disorders; Z3A.34 34 weeks gestation of pregnancy
CPT/HCPCS: 99281

== ENCOUNTER 2017-03-04 20:11 | Emergency (ER) | payer MEDICAID ==
[~2017-03-04] VITALS: Ht 157.5 cm; Wt 106.6 kg
--- NOTE | 2017-03-04 20:54 | PD ---
HPI Chief Complaint Contractions Date Seen: Mar 04, 2017 Time Seen: 20:49 Travel History International Travel<30 Days: No Contact w/Intl Traveler<30Days: No Known Affected Area: No History of Present Illness HPI 26-year-old who is at 34 weeks 3 days comes in complaining of contractions since early this morning. She states they've been persistent every 2-3 minutes. She's had 1 prior vaginal delivery in the past at term that was 6 lbs. 5 oz. No current antepartum complications during this . Weeks Gestation: 34 Para: 1 : 2 History Past Medical History Medical History: Denies Significant Hx Obstetric History Obstetric History Spontaneous vaginal delivery at 39 weeks, 6 lbs. 5 oz. Past Surgical History Surgical History: No Previous Surgery Family History Family History: Negative Social History Alcohol Use: No Tobacco Use: No Substance Abuse: No Allergies-Medications (Allergen,Severity, Reaction): Coded Allergies: amoxicillin (Verified Allergy, Severe, 02/08/17) acetaminophen (Unverified Allergy, Unknown, 02/08/17) hydrocodone (Unverified Allergy, Unknown, 02/08/17) ibuprofen (Unverified Allergy, Unknown, 02/08/17) penicillin G (Unverified Allergy, Unknown, 02/08/17) tramadol (Unverified Allergy, Unknown, 02/08/17) Home Meds Reported Medications Wowb-Mpksngkm-Ugfxgeuu (Flintstones Complete) 60 Mg Tab, 1 TAB CHEW DAILY for Nutritional Supplement, #30 TAB 0 Refills 02/08/17 Review of Systems Except as stated in HPI: all other systems reviewed are Neg Physical Exam Narrative GENERAL: Well-nourished, well-developed patient. SKIN: Warm and dry. HEAD: Normocephalic and atraumatic. EYES: No scleral icterus. No injection or drainage. ENT: No nasal drainage noted. Mucous membranes pink. Airway patent. NECK: Supple, trachea midline. No JVD. CARDIOVASCULAR: Regular rate and rhythm without murmurs, gallops, or rubs. RESPIRATORY: Breath sounds equal bilaterally. No accessory muscle use. ABDOMEN/GI: Abdomen soft, non-tender, bowel sounds present, no rebound, no guarding Gravid to [-35] weeks size Fundal Height: [-] GENITOURINARY: External Genitalia: intact and normal in appearance BUS glands: [-Normal] Cervix: [-Posterior] Dilatation: [-Closed] Effacement: [-Long] Station: [High-] Presentation: [-Vertex] Membranes: [intact ] Uterine Contractions: [Absent-] FHT's: Category: [-1] Baseline: [140-] Reactive: [-Moderate] Variability: [-Moderate] Decels: [-Absent] EXTREMITIES: No cyanosis or edema. BACK: Nontender without obvious deformity. No CVA tenderness. NEUROLOGICAL: Awake and alert. Motor and sensory grossly within normal limits. Five out of 5 muscle strength in all muscle groups. Normal speech. Data Data Vital Signs Reviewed: Yes MDM Medical Record Reviewed: Yes Plan 26-year-old who is at 34 weeks 3 days. No contractions are noted on the toco and no palpable contractions on examination. Cervix is closed long and high and patient does not show signs of labor with no history of labor Discharge home with follow-up to Dr. Peralta as scheduled Diagnosis Diagnosis: Primary Impression: 34 weeks gestation of Additional Impression: False labor before 37 completed weeks of gestation during in third trimester, antepartum Disposition: 01 DISCHARGE HOME Christa Izaguirre MD Mar 04, 2017 20:54
== END 2017-03-04 21:02 | disposition home or self-care (01) ==
LOC: HOBED 20:11
DX: O47.03 False labor before 37 completed weeks of gestation, third trimester (principal); Z3A.34 34 weeks gestation of pregnancy; Z88.0 Allergy status to penicillin; Z88.6 Allergy status to analgesic agent; Z88.5 Allergy status to narcotic agent
CPT/HCPCS: 59025

== ENCOUNTER 2017-03-13 10:49 | Emergency (ER) | payer MEDICAID ==
[2017-03-13] VITALS (8 sets, daily range): PULSE 76–86
--- NOTE | 2017-03-13 12:18 | PD ---
HPI Chief Complaint abdominal pain Date Seen: Mar 13, 2017 Time Seen: 12:12 Travel History International Travel<30 Days: No Contact w/Intl Traveler<30Days: No Known Affected Area: No History of Present Illness HPI Pt is a 26y/o @ 35.5wks. She has PNC with Dr. Peralta. She presents today with c/o stabbing abdominal pain since 10pm last night. It is midline and stretches from below the umbilicus to above it. She denies ctx. She denies that it is the baby moving. She has no associated vomiting or dysuria. She had a normal BM this morning. No LOF or VB. Weeks Gestation: 35 Para: 1 : 2 History Past Medical History Medical History: Denies Significant Hx Obstetric History Obstetric History 1. 2. current Past Surgical History Narrative Surgical tear duct sx Family History Family History: Negative Social History Alcohol Use: No Tobacco Use: No Substance Abuse: No Allergies-Medications (Allergen,Severity, Reaction): Coded Allergies: amoxicillin (Verified Allergy, Severe, 03/04/17) acetaminophen (Unverified Allergy, Unknown, 03/04/17) hydrocodone (Unverified Allergy, Unknown, 03/04/17) ibuprofen (Unverified Allergy, Unknown, 03/04/17) penicillin G (Unverified Allergy, Unknown, 03/04/17) tramadol (Unverified Allergy, Unknown, 03/04/17) Home Meds Reported Medications Nofg-Blonjwnp-Pkdasbus (Flintstones Complete) 60 Mg Tab, 1 TAB CHEW DAILY for Nutritional Supplement, #30 TAB 0 Refills 02/08/17 Review of Systems Except as stated in HPI: all other systems reviewed are Neg Physical Exam Narrative General: well developed, well nourished, no acute distress HEENT: normocephalic atraumatic, extraocular movements intact, neck supple Abdomen: soft, gravid, nontender, nondistended Uterus: fundus term and non-tender Extremities: full range of motion Skin: normal coloration, no rashes, no suspicious skin lesions noted Neurologic: cranial nerves 2-12 grossly intact, normal muscle tone, normal gait Psychiatric: normal mood and affect, appropriate FHTs: 130, +accels, no decels, moderate variability, reactive [place]: quiet Cvx: deferred Data Data Vital Signs Reviewed: Yes Orders Orders Vital Signs (Adult) .ON ADMISSION (03/13/17 12:02) ^ Labor Status (03/13/17 12:02) Urinalysis - C+S If Indicated (03/13/17 12:02) ^ Non Stress Test (03/13/17 12:02) Labs Laboratory Tests Test 03/13/17 11:10 MDM Plan 26y/o @ 35.5wks with abd pain. -- benign exam -- UA with mod LE but likely contaminant -- toco quiet -- FHTs cat 1 Dispo: stable for d/c home with precautions Diagnosis Diagnosis: Primary Impression: 35 weeks gestation of Additional Impression: Abdominal pain Patient Instructions: General Instructions, Nausea and Vomiting in ( ED), Having Your Baby: The Labor Process (GEN), Movement (ED), Abdominal Pain in (ED) Additional Instructions: Follow up with Dr Peralta as scheduled Departure Forms: Tests/Procedures Robbin Gamboa MD Mar 13, 2017 12:18
[2017-03-13 12:33] LABS: BACTERIA, URINE RARE /hpf; BILIRUBIN, URINE NEG (NEG); BLOOD, URINE NEG (NEG); GLUCOSE,URINE NEG (NEG); KETONE, URINE NEG (NEG); MUCUS URINE FEW /lpf (OCC); NITRITE,URINE NEG (NEG); SQUAMOUS EPITHELIAL CELL URINE 4 /hpf (0-5); URINE COLOR LIGHT-YELLOW (YELLW/STRAW); URINE LEUKOCYTE ESTERASE LARGE (NEG)
== END 2017-03-13 12:35 | disposition home or self-care (01) ==
LOC: HOBED 10:49
DX: O26.893 Other specified pregnancy related conditions, third trimester (principal); R10.9 Unspecified abdominal pain; Z3A.35 35 weeks gestation of pregnancy; Z88.0 Allergy status to penicillin; Z88.6 Allergy status to analgesic agent; Z88.5 Allergy status to narcotic agent
CPT/HCPCS: 59025; 81001

== ENCOUNTER 2017-03-17 12:20 | Emergency (ER) | payer MEDICAID ==
[~2017-03-17] VITALS: Ht 157.5 cm; Wt 106.8 kg
[2017-03-17 12:22] VITALS: BP 110/67; PULSE 106; RESP 14; TEMP 98.1; O2SAT 98
--- NOTE | 2017-03-17 12:29 | PD ---
HPI Chief Complaint: Chest Pain Time Seen by Provider: 12:29 Travel History International Travel<30 days: No Contact w/Intl Traveler<30days: No Traveled to known affect area: No History of Present Illness HPI ONSET OF CHEST PAIN TO ANTERIOR CHEST, SHARP, 8/10, WORSE WITH MOVING/BREATHING , DENIES ANY COUGH/URI SX....STATES 36 WEEKS AT THIS POINT. PFSH Past Medical History ?: : 2 Para: 1 Past Surgical History Other Surgery: Yes (tear duck ) Social History Alcohol Use: No Tobacco Use: No Substance Use: No Allergies-Medications (Allergen,Severity, Reaction): Coded Allergies: amoxicillin (Verified Allergy, Severe, 03/17/17) acetaminophen (Unverified Allergy, Unknown, 03/17/17) hydrocodone (Unverified Allergy, Unknown, 03/17/17) ibuprofen (Unverified Allergy, Unknown, 03/17/17) penicillin G (Unverified Allergy, Unknown, 03/17/17) tramadol (Unverified Allergy, Unknown, 03/17/17) Reported Meds & Prescriptions Reported Meds & Active Scripts Active Reported Flintstones Complete (Iron/Minerals/Multivitamins) 60 Mg Tab 1 Tab CHEW DAILY Review of Systems General / Constitutional: No: Fever Eyes: No: Visual changes HENT: No: Headaches Cardiovascular: Positive: Chest Pain or Discomfort Respiratory: No: Shortness of Breath Gastrointestinal: No: Abdominal Pain Genitourinary: No: Dysuria Musculoskeletal: No: Pain Skin: No Rash Neurologic: No: Weakness Psychiatric: No: Depression Endocrine: No: Polydipsia Hematologic/Lymphatic: No: Easy Bruising Physical Exam Narrative GENERAL: SKIN: Warm and dry. HEAD: Atraumatic. Normocephalic. EYES: Pupils equal and round. No scleral icterus. No injection or drainage. ENT: No nasal bleeding or discharge. Mucous membranes pink and moist. NECK: Trachea midline. No JVD. CARDIOVASCULAR: Regular rate and rhythm. RESPIRATORY: No accessory muscle use. Clear to auscultation. Breath sounds equal bilaterally. REPRODUCIBLE CW PAIN WITH PALPATION (NO CREPITUS PALPATED) GASTROINTESTINAL: Abdomen soft, non-tender, nondistended. MUSCULOSKELETAL: Extremities without clubbing, cyanosis, or edema. No obvious deformities. NEUROLOGICAL: Awake and alert. No obvious cranial nerve deficits. Motor grossly within normal limits. Five out of 5 muscle strength in the arms and legs. Normal speech. PSYCHIATRIC: Appropriate mood and affect; insight and judgment normal. Data Data Last Documented VS Vital Signs Date Time Temp Pulse Resp B/P (MAP) Pulse Ox O2 Delivery O2 Flow Rate FiO2 03/17/17 12:38 87 18 97 Room Air 03/17/17 12:22 98.1 110/67 (81) Orders Orders Electrocardiogram (03/17/17 12:34) Basic Metabolic Panel (Bmp) (03/17/17 12:40) Complete Blood Count With Diff (03/17/17 12:40) Troponin I (03/17/17 12:40) Iv Access Insert/Monitor (03/17/17 12:40) Chest, Single Ap (03/17/17 14:08) Lung Scan - Perfusion (03/17/17 13:59) Labs Laboratory Tests Test 03/17/17 12:50 White Blood Count 5.4 TH/MM3 Red Blood Count 4.15 MIL/MM3 Hemoglobin 10.4 GM/DL Hematocrit 32.3 % Mean Corpuscular Volume 78.0 FL Mean Corpuscular Hemoglobin 25.2 PG Mean Corpuscular Hemoglobin Concent 32.3 % Red Cell Distribution Width 13.8 % Platelet Count 184 TH/MM3 Mean Platelet Volume 10.1 FL Neutrophils (%) (Auto) 66.6 % Lymphocytes (%) (Auto) 21.4 % Monocytes (%) (Auto) 11.5 % Eosinophils (%) (Auto) 0.4 % Basophils (%) (Auto) 0.1 % Neutrophils # (Auto) 3.6 TH/MM3 Lymphocytes # (Auto) 1.1 TH/MM3 Monocytes # (Auto) 0.6 TH/MM3 Eosinophils # (Auto) 0.0 TH/MM3 Basophils # (Auto) 0.0 TH/MM3 CBC Comment DIFF FINAL Differential Comment Blood Urea Nitrogen 5 MG/DL Creatinine 0.51 MG/DL Random Glucose 93 MG/DL Calcium Level 8.9 MG/DL Sodium Level 139 MEQ/L Potassium Level 3.5 MEQ/L Chloride Level 106 MEQ/L Carbon Dioxide Level 23.8 MEQ/L Anion Gap 9 MEQ/L Estimat Glomerular Filtration Rate 148 ML/MIN Troponin I LESS THAN 0.02 NG/ML MDM Medical Decision Making Medical Screen Exam Complete: Yes Emergency Medical Condition: Yes Medical Record Reviewed: Yes Differential Diagnosis CHEST WALL PAIN V RIB FX V PTX V KS V PE Narrative Course D/W DR WILLIS RADIOLOGIST WHO APPROVED CT CHEST R/O PE, HOWEVER ABOUT AN HOUR LATER DR RODRIGUES RECC V/Q SCAN WITH CXR, WILL REORDER PER RECOMMENDATION Physician Communication Physician Communication VQ SCAN READ AN NEG FOR PE BY DR RODRIGUES Diagnosis Primary Impression: CHEST WALL PAIN Patient Instructions: Chest Wall Pain (ED), General Instructions Additional Instructions: PLEASE FOLLOW UP WITH OB UPSTAIRS FOR ANY FURTHER CARE. TODAY YOU WERE MEDICALLY CLEARED AND NOT FOUND TO HAVE BLOOD CLOT IN YOUR LUNGS, HEARTATTACK OR PNEUMONIA. Disposition: 01 DISCHARGE HOME Condition: Stable Kale Matamoros MD Mar 17, 2017 12:29
[2017-03-17 13:00] LABS: AUTOMATED NEUTROPHIL # 3.6 TH/MM3 (1.8-7.7); BASOPHIL % 0.1 % (0.0-2.0); EOSINOPHIL % 0.4 % (0.0-4.0); HEMATOCRIT 32.3 % (35.0-46.0); HEMOGLOBIN 10.4 GM/DL (11.6-15.3); LYMPH % 21.4 % (9.0-44.0); LYMPHOCYTE # 1.1 TH/MM3 (1.0-4.8); MEAN CORPUSCULAR HEMOGLOBIN 25.2 PG (27.0-34.0); MEAN CORPUSCULAR HGB CONC 32.3 % (32.0-36.0); MEAN PLATELET VOLUME 10.1 FL (7.0-11.0); MONO % 11.5 % (0.0-8.0); MONOCYTE # 0.6 TH/MM3 (0-0.9); NEUT % 66.6 % (16.0-70.0); PLATELET COUNT 184 TH/MM3 (150-450); RED BLOOD COUNT 4.15 MIL/MM3 (4.00-5.30); RED CELL DISTRIBUTION WIDTH 13.8 % (11.6-17.2); WHITE BLOOD COUNT 5.4 TH/MM3 (4.0-11.0)
[2017-03-17 13:15] LABS: BICARBONATE 23.8 MEQ/L (21.0-32.0); BLOOD UREA NITROGEN 5 MG/DL (7-18); CALCIUM 8.9 MG/DL (8.5-10.1); CHLORIDE 106 MEQ/L (98-107); CREATININE 0.51 MG/DL (0.50-1.00); GLOMERULAR FILTRATION RATE 148 ML/MIN (>89); GLUCOSE,RANDOM 93 MG/DL (74-106); SODIUM (NA) 139 MEQ/L (136-145)
[2017-03-17 13:19] LABS: TROPONIN I LESS THAN 0.02 NG/ML (0.02-0.05)
--- NOTE | 2017-03-17 14:43 | RADRPT ---
EXAM DATE/TIME: 03/17/2017 14:20 [facility] COMPARISON: No previous studies available for comparison. INDICATIONS : R/O pulmonary embolism, chest pain. MEDICAL HISTORY : 36 weeks SURGICAL HISTORY : None. ENCOUNTER: Initial ACUITY: 1 day PAIN SCORE: 8/10 LOCATION: Bilateral chest FINDINGS: There is a poor inspiratory result. The heart is minimally prominent. Minimal central pulmonary vascu lar congestion is likely. No focal alveolar consolidation is noted to suggest pneumonia. CONCLUSION: 1. Minimal central pulmonary vascular congestion and cardiomegaly. 2. Poor inspiratory result. Terence Thomson MD on March 17, 2017 at 14:39 Board Certified Radiologist. This report was verified electronically.
[2017-03-17 15:30] VITALS: BP 112/75; PULSE 95; RESP 18; O2SAT 97
--- NOTE | 2017-03-17 15:53 | RADRPT ---
EXAM DATE/TIME: 03/17/2017 14:52 [facility] COMPARISON: CHEST SINGLE AP, March 17, 2017, 14:20. INDICATIONS : Chest pain and dyspnea. Patient is 34 weeks . DOSE: 1.1 mCi Tc99m Labeled MAA IV MEDICAL HISTORY : . SURGICAL HISTORY : None. ENCOUNTER: Initial ACUITY: 1 day PAIN SCALE: 5/10 LOCATION: Left chest TECHNIQUE: The patient was injected with MAA, and eight-view perfusion scan was performed. FINDINGS: PERFUSION: There is a homogenous pattern of radiotracer uptake throughout both lungs. CONCLUSION: Normal examination. Aashish Treadwell MD on March 17, 2017 at 15:50 Board Certified Radiologist. This report was verified electronically.
--- NOTE | 2017-03-18 12:46 | EKG ---
Date Performed: 03/17/2017 Time Performed: 12:38:42 PTAGE: 26 years EKG: Sinus rhythm NORMAL ECG NO PREVIOUS TRACING DOCTOR: Donnell Mejia Interpretating Date/Time 03/18/2017 12:45:44
== END 2017-03-17 17:18 | disposition home or self-care (01) ==
LOC: NEPE 12:20
DX: R07.89 Other chest pain (principal)
CPT/HCPCS: 71045; 78580; 80048; 84484; 85025; 93005; 99285; A9540

== ENCOUNTER 2017-03-24 20:49 | Emergency (ER) | payer MEDICAID ==
--- NOTE | 2017-03-24 21:29 | PD ---
HPI Chief Complaint Bilateral lower abdominal pain Date Seen: Mar 24, 2017 Time Seen: 21:24 Travel History International Travel<30 Days: No Contact w/Intl Traveler<30Days: No Known Affected Area: No History of Present Illness HPI 26-year-old who is at 37 weeks 5 days comes in due to several different complaints. She was brought in by [facility] as patient states that she 'fainted in the bed'and that her mother found that she had decreased responsiveness when she was asked questions. Patient does not remember any of this. He was seen by Dr. Peralta in the office today and complained of decreased movement, ultrasound was done that showed multiple placenta lakes and an CLAIRE of 9.5. Urine dip was also performed the office which was normal and a cervical exam of noted that she was fingertip. Patient admits to having mild spotting after the exam. Patient was concerned that she had hypertension. Weeks Gestation: 37 Para: 1 : 2 History Past Medical History Medical History: Denies Significant Hx Obstetric History Obstetric History Past Surgical History Surgical History: No Previous Surgery Family History Family History: Negative Social History Alcohol Use: No Tobacco Use: No Substance Abuse: No Allergies-Medications (Allergen,Severity, Reaction): Coded Allergies: amoxicillin (Verified Allergy, Severe, 03/17/17) acetaminophen (Unverified Allergy, Unknown, 03/17/17) hydrocodone (Unverified Allergy, Unknown, 03/17/17) ibuprofen (Unverified Allergy, Unknown, 03/17/17) penicillin G (Unverified Allergy, Unknown, 03/17/17) tramadol (Unverified Allergy, Unknown, 03/17/17) Home Meds Reported Medications Jckv-Mxmcfkqx-Cmgllruf (Flintstones Complete) 60 Mg Tab, 1 TAB CHEW DAILY for Nutritional Supplement, #30 TAB 0 Refills 02/08/17 Review of Systems Except as stated in HPI: all other systems reviewed are Neg Physical Exam Narrative GENERAL: Well-nourished, well-developed patient. SKIN: Warm and dry. HEAD: Normocephalic and atraumatic. EYES: No scleral icterus. No injection or drainage. ENT: No nasal drainage noted. Mucous membranes pink. Airway patent. NECK: Supple, trachea midline. No JVD. CARDIOVASCULAR: Regular rate and rhythm without murmurs, gallops, or rubs. RESPIRATORY: Breath sounds equal bilaterally. No accessory muscle use. ABDOMEN/GI: Abdomen soft, non-tender, bowel sounds present, no rebound, no guarding. Patient points to the lower groin area as her focus of discomfort. Gravid to [-38] weeks size Fundal Height: [-] GENITOURINARY: Deferred External Genitalia: intact and normal in appearance BUS glands: [-] Cervix: [-] Dilatation: [-] Effacement: [-] Station: [-] Presentation: [-] Membranes: [intact or ruptured] Uterine Contractions: [-] Absent FHT's: Category: [-] 1 Baseline: [-] 140 Reactive: [-] Moderate Variability: [-] Moderate Decels: [-] Absent EXTREMITIES: No cyanosis or edema. BACK: Nontender without obvious deformity. No CVA tenderness. NEUROLOGICAL: Awake and alert. Motor and sensory grossly within normal limits. Five out of 5 muscle strength in all muscle groups. Normal speech. Data Data Vital Signs Reviewed: Yes Orders Orders Vital Signs (Adult) .ON ADMISSION (03/24/17 21:22) ^ Labor Status (03/24/17 21:22) ^ Non Stress Test (03/24/17 21:22) Diet Liquid (03/25/17 Breakfast) Cbc No Diff, Includes Plts (03/24/17 21:22) Basic Metabolic Panel (Bmp) (03/24/17 21:22) Labs Laboratory Tests Test 03/24/17 21:40 White Blood Count 7.8 TH/MM3 Red Blood Count 4.04 MIL/MM3 Hemoglobin 10.5 GM/DL Hematocrit 31.7 % Mean Corpuscular Volume 78.5 FL Mean Corpuscular Hemoglobin 26.0 PG Mean Corpuscular Hemoglobin Concent 33.1 % Red Cell Distribution Width 13.8 % Platelet Count 188 TH/MM3 Mean Platelet Volume 10.9 FL Blood Urea Nitrogen 6 MG/DL Creatinine 0.43 MG/DL Random Glucose 78 MG/DL Calcium Level 8.3 MG/DL Sodium Level 140 MEQ/L Potassium Level 3.6 MEQ/L Chloride Level 107 MEQ/L Carbon Dioxide Level 23.6 MEQ/L Anion Gap 9 MEQ/L Estimat Glomerular Filtration Rate 180 ML/MIN [facility] Medical Record Reviewed: Yes Plan 26-year-old who is at 37-38 weeks with lower abdominal discomfort consistent with third trimester Confusing history of "fainting" while in bed, no signs of preeclampsia, hypotension, significant anemia, electrolyte disturbances, or neurological changes Keep hydrated and follow up with OB Diagnosis Diagnosis: Primary Impression: 37 weeks gestation of Additional Impression: related bilateral lower abdominal pain, antepartum Disposition: 01 DISCHARGE HOME Christa Izaguirre MD Mar 24, 2017 21:29
[2017-03-24 22:21] LABS: BICARBONATE 23.6 MEQ/L (21.0-32.0); CALCIUM 8.3 MG/DL (8.5-10.1); CREATININE 0.43 MG/DL (0.50-1.00)
[2017-03-24 22:23] LABS: HEMATOCRIT 31.7 % (35.0-46.0); HEMOGLOBIN 10.5 GM/DL (11.6-15.3); MEAN CELL VOLUME 78.5 FL (80.0-100.0); MEAN CORPUSCULAR HGB CONC 33.1 % (32.0-36.0); MEAN PLATELET VOLUME 10.9 FL (7.0-11.0); PLATELET COUNT 188 TH/MM3 (150-450); RED BLOOD COUNT 4.04 MIL/MM3 (4.00-5.30); RED CELL DISTRIBUTION WIDTH 13.8 % (11.6-17.2); WHITE BLOOD COUNT 7.8 TH/MM3 (4.0-11.0)
== END 2017-03-24 22:44 | disposition home or self-care (01) ==
LOC: HOBED 20:49
DX: O26.893 Other specified pregnancy related conditions, third trimester (principal); R10.31 Right lower quadrant pain; R10.32 Left lower quadrant pain; Z3A.37 37 weeks gestation of pregnancy
CPT/HCPCS: 80048; 85027; 99283

== ENCOUNTER → 2017-03-24 | Outpatient (CLI) | payer MEDICAID | LOC: HPND 10:37 | PROVIDERS: ATTEND Obstetrics & Gynecology | DX: O36.8130 Decreased fetal movements, third trimester, not applicable or unspecified (principal) | CPT/HCPCS: 76816; 76818 ==

== ENCOUNTER 2017-03-30 15:38 | Emergency (ER) | payer MEDICAID ==
--- NOTE | 2017-03-30 16:48 | PD ---
HPI Chief Complaint Decreased movement and the a week long history of chest pain and minimal shortness of breath Date Seen: Mar 30, 2017 Time Seen: 16:42 Travel History International Travel<30 Days: No Contact w/Intl Traveler<30Days: No Known Affected Area: No History of Present Illness HPI Patient is 26-year-old white female at [address] Peralta's presents complaining of decreased movement some chest pain or shortness of breath. Patient was seen in his office today for routine visit and discussed the chest pain issue this been going on for a week. She didn't mention short of decreased movement. Here on OB ED she does not have leakage of fluid or bleeding. heart rate tracing initially was nonreactive with good variability but no accelerations. Weeks Gestation: 38 Para: 1 : 2 History Obstetric History Obstetric History One vaginal delivery Social History Alcohol Use: No Tobacco Use: No Substance Abuse: No Allergies-Medications (Allergen,Severity, Reaction): Coded Allergies: acetaminophen (Unverified Allergy, Severe, swelling, 03/30/17) ok to take tylenol amoxicillin (Verified Allergy, Severe, swelling, 03/30/17) hydrocodone (Verified Allergy, Severe, swelling, 03/30/17) ibuprofen (Verified Allergy, Severe, swelling, 03/30/17) penicillin G (Verified Allergy, Severe, swelling, 03/30/17) tramadol (Verified Allergy, Severe, swelling, 03/30/17) Home Meds Reported Medications Bjxx-Urbfcucr-Dlitguqd (Flintstones Complete) 60 Mg Tab, 1 TAB CHEW DAILY for Nutritional Supplement, #30 TAB 0 Refills 02/08/17 Review of Systems General / Constitutional: No: Fever, Weight Gain, Chills, Other Eyes: No: Diploplia, Blurred Vision, Visual changes, Pain, Photophobia HENT: No: Headaches, Vertigo, Lightheadedness Cardiovascular: Chest Pain or Discomfort, No: Irregular Rhythm, Palpitations, Tachycardia, Syncope, Varicosities, Edema, Cyanosis Respiratory: Short of Breath, No: Cough, Other Gastrointestinal: No: Nausea, Vomiting, Diarrhea Genitourinary: No: Decreased Urinary Output, Oliguria Musculoskeletal: No: Limited ROM, Weakness, Cramping, Edema, Pain Skin: No Rash, No Itching, No Dryness, No Lumps, No Change in Pigmentation, No Change in Nails, No Alopecia, No Lesions Neurologic: No: Weakness, Dizziness, Syncope, Focal Abnormalities, Coordination Problem, Headache, Slurred Speech, Seizures Psychiatric: No: Depression, Suicidal Ideations, Homicidal Ideation Endocrine: No: Heat Intolerance, Cold Intolerance, Polydipsia, Polyuria, Other Physical Exam Narrative GENERAL: Well-nourished, well-developed patient. SKIN: Warm and dry. HEAD: Normocephalic and atraumatic. EYES: No scleral icterus. No injection or drainage. ENT: No nasal drainage noted. Mucous membranes pink. Airway patent. NECK: Supple, trachea midline. No JVD. CARDIOVASCULAR: Regular rate and rhythm without murmurs, gallops, or rubs. RESPIRATORY: Breath sounds equal bilaterally. No accessory muscle use. BREASTS: Bilateral exam showed no masses , no retractions, no nipple discharge. ABDOMEN/GI: Abdomen soft, non-tender, bowel sounds present, no rebound, no guarding Gravid to [-38] weeks size Fundal Height: [-38] GENITOURINARY: Membranes: [intact ] Uterine Contractions: [none-] FHT's: Category: [1-] Baseline: [-133] Reactive: [-R] Variability: [mod-] Decels: [none-] EXTREMITIES: No cyanosis or edema. BACK: Nontender without obvious deformity. No CVA tenderness. NEUROLOGICAL: Awake and alert. Motor and sensory grossly within normal limits. Five out of 5 muscle strength in all muscle groups. Normal speech. Data Data Orders Orders Us Ob Bpp Wo Nst (03/30/17 16:07) Labs Biophysical profile was done and was 8 of 8 along with now a reactive NST that she has a 10 of 10 MDM Interpretation(s) Patient is 26-year-old white female at 38 weeks presents planning of decreased movement today. Is a week long history of some chest pain and shortness of breath that she discuss with her doctor this morning at her regular OB appointment with Dr. Peralta, her O2 sats 98%, she has no other obstetric problems. Biophysical profile was ordered because initially her NST was nonreactive and a biophysical came back 8 of 8. She was returned OB ED and back on the monitor and the strip is reactive that point with multiple accelerations and good variability. Plan Patient was counseled to be aware kick counts at home. She is: Continue Tylenol with little higher dose 2 every 4 hours for her chest pains and possibly use a heating pad in the area drink less fluid for hydration just bedrest and general may give some improvement Diagnosis Diagnosis: Primary Impression: Decreased movement affecting management of in third trimester Additional Impression: Chest pain Disposition: 01 DISCHARGE HOME Condition: Stable Selvin Jeong II, MD Mar 30, 2017 16:48
== END 2017-03-30 18:03 | disposition home or self-care (01) ==
LOC: HOBED 15:38
DX: O36.8130 Decreased fetal movements, third trimester, not applicable or unspecified (principal); Z3A.38 38 weeks gestation of pregnancy; R06.02 Shortness of breath; R07.9 Chest pain, unspecified
CPT/HCPCS: 59025; 76819

== ENCOUNTER 2017-04-01 12:43 | Emergency (ER) | payer MEDICAID ==
--- NOTE | 2017-04-01 13:49 | PD ---
HPI Chief Complaint lightheadness Date Seen: Apr 01, 2017 Travel History International Travel<30 Days: No Contact w/Intl Traveler<30Days: No History of Present Illness HPI Ms. Lomas is a 26 yo at 38 3/[address] Peralta who presents to OB ED with reported lightheadedness. Patient reports that she has felt dizzy and lightheaded since this morning; patient tried Tylenol without alleviation of lightheadedness. Patient also reports mild headache and says that she sometimes sees spots. Patient reports some nausea and vomiting x1 this morning but that she does not currently feel nauseous. No vertigo. No fevers. No abdominal pain; she sometimes feels contractions at night. No cough, shortness of breath, abnormal urination, or abnormal bowel movements. Patient has some chronic chest discomfort for 1 mo which she attributes to her gestation; no association with activity or with respirations. Patient does not report any recent changes in movement. No reported vaginal bleeding or loss of vaginal fluid. labs/records reviewed: labs normal. No BP concerns. GBS negative. UA 02/2017 with 100 glucosuria, trace protein; 2 hr GTT reassuring. Prior 03/24 US with multiple placental lakes; CLAIRE near lower limits normal, normal BPP Para: 1 : 2 History Obstetric History Obstetric History Past Surgical History Surgical History: No Previous Surgery Family History Narrative Family History HTN CAD seizures Social History Alcohol Use: No Tobacco Use: No Substance Abuse: No Allergies-Medications (Allergen,Severity, Reaction): Coded Allergies: acetaminophen (Unverified Allergy, Severe, swelling, 03/30/17) ok to take tylenol amoxicillin (Verified Allergy, Severe, swelling, 03/30/17) hydrocodone (Verified Allergy, Severe, swelling, 03/30/17) ibuprofen (Verified Allergy, Severe, swelling, 03/30/17) penicillin G (Verified Allergy, Severe, swelling, 03/30/17) tramadol (Verified Allergy, Severe, swelling, 03/30/17) Home Meds Active Scripts Nitrofurantoin Monohydrate Macrocrystals (Macrobid) 100 Mg Capsule, 100 MG PO BID for Infection, #14 CAP 0 Refills Prov:Adams Sauceda MD, R3 04/01/17 Reported Medications Fgxc-Gsprxibl-Rckkmokn (Flintstones Complete) 60 Mg Tab, 1 TAB CHEW DAILY for Nutritional Supplement, #30 TAB 0 Refills 02/08/17 Review of Systems General / Constitutional: No: Fever, Chills Eyes: Visual changes (has been seeing spots; not acute) HENT: Headaches (mild) Cardiovascular: No: Syncope Respiratory: No: Short of Breath Gastrointestinal: No: Nausea, Vomiting Genitourinary: No: Urgency, Dysuria Skin: No Rash, No Itching Neurologic: No: Weakness, Dizziness Physical Exam BP 109/76 HR 100 RR 18 T 97.9F O2 sat 100% Narrative GENERAL: Well-nourished, well-developed patient. SKIN: Warm and dry. HEAD: Normocephalic and atraumatic. EYES: No scleral icterus. No injection or drainage. EOM grossly I. PERRLA ENT: No nasal drainage noted. Mucous membranes pink. Airway patent. CARDIOVASCULAR: Regular rate and rhythm without murmurs. Normal perfusion RESPIRATORY: CTAB; normal rate ABDOMEN/GI: Abdomen soft, non-tender, bowel sounds present Gravid EXTREMITIES: No cyanosis or edema. NEUROLOGICAL: Awake and alert. Motor and sensory function grossly within normal limits. GENITOURINARY: External Genitalia: intact and normal in appearance BUS glands: [-] Cervix: [-] Dilatation: [-] Effacement: [-] Station: [-] Presentation: [-] Membranes: [intact or ruptured] Uterine Contractions: [-] FHT's: Category: 1 Baseline: 130 Reactive: Y Variability: Mod Decels: None Data Data Vital Signs Reviewed: Yes Orders Orders Vital Signs (Adult) .ON ADMISSION (04/01/17 13:24) ^ Labor Status (04/01/17 13:24) ^ Non Stress Test (04/01/17 13:24) ^ Hydration (04/01/17 13:24) Orthostatic Vital Signs (04/01/17 13:24) MDM Medical Record Reviewed: Yes Narrative Course / MDM Ms. Lomas is a 26 yo at 38 3/[address] Peralta who presents to OB ED with reported lightheadedness. -Cat 1 rhythm -Occasional uterine irritability -Normal VS Plan: -Continue to monitor EFM, CTG -Will check CBC to assess for anemia -Will check BMP to assess for hypoglycemia, electrolyte abnormalities -Will check Orthostatic VS -Will give oral hydration Interval: Orthostatics negative CBC- borderline anemia (Hgb 10.5) Metabolic panel- glucose 67 UA- 30 protein, elevated Sp Gr, large leukocytes, 61 WBC, rare bacteria -No contractions on CTG -Cat 1 rhythm Updated Plan: -Will plan to discharge patient home with follow-up with Dr. Peralta -Advised patient to return to OB ED with any worsening lightheadedness, concern for fetus, or new symptoms -Due to UA suggestion of UTI, will empirically give Macrobid for UTI Diagnosis Diagnosis: Primary Impression: Additional Impressions: Urinary tract infection affecting Lightheadedness Disposition: 01 DISCHARGE HOME Condition: Stable Scripts Nitrofurantoin Monohydrate Macrocrystals (Macrobid) 100 Mg Capsule 100 MG PO BID for Infection, #14 CAP 0 Refills Prov: Adams Sauceda MD, R3 04/01/17 Patient Instructions: General Instructions, Early Labor Signs (ED), Nausea and Vomiting in (ED), Urinary Tract Infection in (ED) Adams Sauceda MD, R3 Apr 01, 2017 13:49
[2017-04-01 14:00] VITALS: BP_SYST 118; BP_SYST 124; BP_SYST 127; BP_DIAS 77; BP_DIAS 79; BP_DIAS 84
[2017-04-01 14:31] LABS: AUTOMATED NEUTROPHIL # 5.5 TH/MM3 (1.8-7.7); BASOPHIL % 0.2 % (0.0-2.0); EOSINOPHIL % 0.3 % (0.0-4.0); HEMATOCRIT 32.6 % (35.0-46.0); HEMOGLOBIN 10.5 GM/DL (11.6-15.3); LYMPH % 19.9 % (9.0-44.0); LYMPHOCYTE # 1.5 TH/MM3 (1.0-4.8); MEAN CELL VOLUME 77.4 FL (80.0-100.0); MEAN CORPUSCULAR HEMOGLOBIN 24.9 PG (27.0-34.0); MEAN CORPUSCULAR HGB CONC 32.2 % (32.0-36.0); MEAN PLATELET VOLUME 10.8 FL (7.0-11.0); MONO % 7.4 % (0.0-8.0); MONOCYTE # 0.6 TH/MM3 (0-0.9); NEUT % 72.2 % (16.0-70.0); PLATELET COUNT 192 TH/MM3 (150-450); RED BLOOD COUNT 4.22 MIL/MM3 (4.00-5.30); RED CELL DISTRIBUTION WIDTH 14.5 % (11.6-17.2); WHITE BLOOD COUNT 7.6 TH/MM3 (4.0-11.0)
[2017-04-01 14:37] LABS: BACTERIA, URINE RARE /hpf; BILIRUBIN, URINE NEG (NEG); BLOOD, URINE NEG (NEG); GLUCOSE,URINE NEG (NEG); KETONE, URINE NEG (NEG); MUCUS URINE MANY /lpf (OCC); NITRITE,URINE NEG (NEG); PH, URINE 6.5 (5.0-8.5); SQUAMOUS EPITHELIAL CELL URINE 11 /hpf (0-5); URINE COLOR YELLOW (YELLW/STRAW); URINE LEUKOCYTE ESTERASE LARGE (NEG)
[2017-04-01 14:49] LABS: BICARBONATE 23.7 MEQ/L (21.0-32.0); CALCIUM 9.3 MG/DL (8.5-10.1); CREATININE 0.54 MG/DL (0.50-1.00)
[2017-04-01] MEDS ORDERED: MACR100C2 PO (16:29)
== END 2017-04-01 16:52 | disposition home or self-care (01) ==
LOC: HOBED 12:43
DX: O23.43 Unspecified infection of urinary tract in pregnancy, third trimester (principal); R42 Dizziness and giddiness; O99.013 Anemia complicating pregnancy, third trimester; R51 Headache; Z3A.38 38 weeks gestation of pregnancy
CPT/HCPCS: 36415; 59025; 80048; 81001; 85025; 87086

== ENCOUNTER 2017-04-05 07:39 | Emergency (ER) | payer MEDICAID ==
[~2017-04-05] VITALS: Ht 157.5 cm; Wt 109.3 kg
[~2017-04-05 07:39] MED LIST changes: +MACR100C2 PO
--- NOTE | 2017-04-05 08:29 | PD ---
HPI Chief Complaint 39 weeks Uterine contractions 1 day Date Seen: Apr 05, 2017 Time Seen: 08:05 Travel History International Travel<30 Days: No Contact w/Intl Traveler<30Days: No Known Affected Area: No History of Present Illness HPI Patient is a 26 yo at 39 weeks . EDC 04-13-[address] Peralta. Patient reports uterine contractions starting yesterday and progressively more intense prior to arrival on OB ED. She reports some vaginal spotting this morning. No vaginal leaking. Active movements. No headaches, no vision changes. No fevers or chills. Patient recently completed Macrobid course for UTI. Has FU appointment with Dr Peralta on 04/07/2017 Weeks Gestation: 39 History Obstetric History Obstetric History prior . term Past Surgical History Surgical History: No Previous Surgery Social History Alcohol Use: No Tobacco Use: No Substance Abuse: No Allergies-Medications (Allergen,Severity, Reaction): Coded Allergies: acetaminophen (Unverified Allergy, Severe, swelling, 04/05/17) ok to take tylenol amoxicillin (Verified Allergy, Severe, swelling, 04/05/17) hydrocodone (Verified Allergy, Severe, swelling, 04/05/17) ibuprofen (Verified Allergy, Severe, swelling, 04/05/17) penicillin G (Verified Allergy, Severe, swelling, 04/05/17) tramadol (Verified Allergy, Severe, swelling, 04/05/17) Home Meds Discontinued Reported Medications Gkmx-Wahocpcz-Qrizzpii (Flintstones Complete) 60 Mg Tab, 1 TAB CHEW DAILY for Nutritional Supplement, #30 TAB 0 Refills 02/08/17 Discontinued Scripts Nitrofurantoin Monohydrate Macrocrystals (Macrobid) 100 Mg Capsule, 100 MG PO BID for Infection, #14 CAP 0 Refills Prov:Adams Sauceda MD, R3 04/01/17 Review of Systems Except as stated in HPI: all other systems reviewed are Neg Physical Exam Narrative GENERAL: Well-nourished, well-developed patient. SKIN: Warm and dry. HEAD: Normocephalic and atraumatic. EYES: No scleral icterus. No injection or drainage. ENT: No nasal drainage noted. Mucous membranes pink. Airway patent. NECK: Supple, trachea midline. No JVD. CARDIOVASCULAR: Regular rate and rhythm without murmurs, gallops, or rubs. RESPIRATORY: Breath sounds equal bilaterally. No accessory muscle use. BREASTS: Bilateral exam showed no masses , no retractions, no nipple discharge. ABDOMEN/GI: Abdomen soft, non-tender, bowel sounds present, no rebound, no guarding Gravid to [39 ] weeks size Fundal Height: [39] GENITOURINARY: External Genitalia: intact and normal in appearance BUS glands: [wnl] Cervix: [soft] Dilatation: [2cm] Effacement: [50%] Station: [-3] posterior Presentation: [vertex] Membranes: [intact] Uterine Contractions: [3-4 minutes] FHT's: Category: [1] Baseline: [130s] Reactive: [-] Variability: [moderate] Decels: [none] EXTREMITIES: No cyanosis or edema.Normal DTRs at patella BACK: Nontender without obvious deformity. No CVA tenderness. NEUROLOGICAL: Awake and alert. Motor and sensory grossly within normal limits. Five out of 5 muscle strength in all muscle groups. Normal speech. Data Data Vital Signs Reviewed: Yes Group B Strep: Negative MDM Medical Record Reviewed: Yes Plan 26 yo at 39 weeks. Presents with uterine contractions. Cervix is 2cm dilated/50% , and this is unchanged from exam in office 4 days ago. status reassuring. Plan is to allow her to ambulate and to recheck in 1 hour. Cervical exam was unchanged. UA suggests UTI Will send home on Macrobid Will discharge home with labor precautions. Diagnosis Diagnosis: Primary Impression: with 39 completed weeks gestation Additional Impressions: False labor at or after 37 completed weeks of gestation UTI (urinary tract infection) Disposition: DISCHARGE HOME Condition: Good Titi Lynn MD Apr 05, 2017 08:29
[2017-04-05 09:13] VITALS: RESP 18
[2017-04-05 09:21] LABS: BILIRUBIN, URINE NEG (NEG); BLOOD, URINE LARGE (NEG); GLUCOSE,URINE NEG (NEG); KETONE, URINE TRACE mg/dL (NEG); MUCUS URINE FEW /lpf (OCC); NITRITE,URINE NEG (NEG); PH, URINE 6.5 (5.0-8.5); SQUAMOUS EPITHELIAL CELL URINE 11 /hpf (0-5); URINE COLOR YELLOW (YELLW/STRAW); URINE LEUKOCYTE ESTERASE LARGE (NEG)
== END 2017-04-05 09:27 | disposition home or self-care (01) ==
LOC: HOBED 07:39
DX: O23.43 Unspecified infection of urinary tract in pregnancy, third trimester (principal); O47.1 False labor at or after 37 completed weeks of gestation; Z3A.39 39 weeks gestation of pregnancy; Z88.6 Allergy status to analgesic agent; Z88.0 Allergy status to penicillin; Z88.5 Allergy status to narcotic agent
CPT/HCPCS: 81001; 87086; 99283

== ENCOUNTER 2017-04-05 21:40 | Inpatient (IN) | payer MEDICAID ==
[2017-04-05] MEDS ORDERED: LACTATED RINGER'S 1000 ML INJ 1,000 ML IV (22:21)
[2017-04-05] MEDS ORDERED: SODIUM CHLORID 0.9% 500 ML INJ 500 ML IV (22:30)
[2017-04-05] MEDS ORDERED: MINERAL OIL 10 ML VIAL TOPICAL (22:30)
[2017-04-05] MEDS ORDERED: LIDOCAINE HCL 1% 50 ML VIAL INFIL (22:30)
[2017-04-05] MEDS ORDERED: OXYTOCIN 30 UNITS-500ML PREMIX 500 ML IV (22:30)
[2017-04-05] MEDS ORDERED: LIDOCAINE HCL 1% 50 ML VIAL I-DERMAL (22:30)
[2017-04-05] MEDS ORDERED: CITRIC ACID-SODIUM CITRATE LIQ 30 ML UDC PO (22:30)
[2017-04-05] MEDS ORDERED: ONDANSETRON HCL 4 MG/2 ML VIAL IV PUSH (22:30)
[2017-04-05] MEDS ORDERED: SODIUM CHLOR 0.9% 1000 ML INJ 1,000 ML IV (22:41)
[2017-04-05 23:02] LABS: AUTOMATED NEUTROPHIL # 6.5 TH/MM3 (1.8-7.7); BASOPHIL % 0.1 % (0.0-2.0); EOSINOPHIL % 0.2 % (0.0-4.0); HEMATOCRIT 30.2 % (35.0-46.0); HEMO FLAGS DIFF FINAL; HEMOGLOBIN 10.1 GM/DL (11.6-15.3); LYMPHOCYTE # 1.6 TH/MM3 (1.0-4.8); MEAN CELL VOLUME 76.7 FL (80.0-100.0); MEAN CORPUSCULAR HEMOGLOBIN 25.7 PG (27.0-34.0); MEAN CORPUSCULAR HGB CONC 33.6 % (32.0-36.0); MEAN PLATELET VOLUME 10.1 FL (7.0-11.0); MONO % 6.3 % (0.0-8.0); MONOCYTE # 0.5 TH/MM3 (0-0.9); NEUT % 75.4 % (16.0-70.0); PLATELET COUNT 184 TH/MM3 (150-450); RED BLOOD COUNT 3.94 MIL/MM3 (4.00-5.30); RED CELL DISTRIBUTION WIDTH 14.5 % (11.6-17.2); WHITE BLOOD COUNT 8.7 TH/MM3 (4.0-11.0)
[2017-04-05] MEDS: LACTATED RINGER'S 1000 ML INJ 1,000 ML IV (23:14)
[2017-04-05 23:55] LABS: AMORPHOUS SEDIMENT, URINE RARE; BACTERIA, URINE MANY /hpf; BILIRUBIN, URINE NEG (NEG); BLOOD, URINE LARGE (NEG); COMMENT (UR) CULTURE INDICATED; CULTURE IF INDICATED CULTURE INDICATED; GLUCOSE,URINE NEG (NEG); KETONE, URINE NEG (NEG); MUCUS URINE FEW /lpf (OCC); NITRITE,URINE NEG (NEG); SQUAMOUS EPITHELIAL CELL URINE 35 /hpf (0-5); URINE COLOR YELLOW (YELLW/STRAW); URINE LEUKOCYTE ESTERASE LARGE (NEG)
[2017-04-06] LABS: AMPHETAMINE, URINE NEG (NEG); BARBITURATES, URINE NEG (NEG); BENZODIAZEPINE,URINE NEG (NEG); CANNABINOIDS, URINE NEG (NEG); COCAINE, URINE NEG (NEG)
[2017-04-06] MEDS: ePHEDrine/NS 25 MG/5 ML SYRINGE (04:10)
[2017-04-06] MEDS ORDERED: NO SYSTEM NARCOTICS (05:00)
[2017-04-06] MEDS ORDERED: DO NOT ADMINISTER ANTICOAGULANTS (05:00)
[2017-04-06] MEDS: fentaNYL 2MCG-BUPIV 0.125% 100 ML EPIDURAL (05:29)
[2017-04-06] MEDS ORDERED: ePHEDrine/NS 25 MG/5 ML SYRINGE IV PUSH (05:30)
[2017-04-06] MEDS ORDERED: LIDOCAINE HCL 1% 20 ML VIAL ×2 (09:36→13:52)
[2017-04-06] MEDS: OXYTOCIN 30 UNITS-500ML PREMIX 500 ML (10:08)
[2017-04-06] MEDS ORDERED: ZOLPIDEM TARTRATE 5 MG TAB PO (14:00)
[2017-04-06] MEDS ORDERED: OXYTOCIN 30 UNITS-500ML PREMIX 500 ML IV (14:00)
[2017-04-06] MEDS ORDERED: WITCH HAZEL 50%/GLYCERIN 12.5% 40 PAD JAR TOPICAL (14:00)
[2017-04-06] MEDS ORDERED: ALUMINUM/MAGNESIUM/SIMETH 30 ML CUP PO (14:00)
[2017-04-06] MEDS ORDERED: BENZOCAINE 20% TOPICAL SPRAY 60 ML CAN TOPICAL (14:00)
[2017-04-06] MEDS ORDERED: ONDANSETRON ODT 4 MG TAB PO (14:00)
[2017-04-06] MEDS ORDERED: SODIUM CHLORIDE 0.9% FLUSH 10 ML FLUSH IV FLUSH ×2 (14:00→21:00)
[2017-04-06] MEDS ORDERED: DOCUSATE SODIUM 50 MG/SENNA 8.6 MG TAB PO (14:00)
[2017-04-06] MEDS ORDERED: DIPHTH/TETANUS/ACEL PERTUSSIS (BOOSTER) 0.5 ML VIAL/PFS IM (16:00)
[2017-04-06] MEDS ORDERED: MEASLES, MUMPS, RUBELLA VACCINE 0.5 ML VIAL SQ (16:00)
== END 2017-04-07 16:59 | disposition home or self-care (01) | DRG 775 ==
LOC: HOBED 21:40 → H2EB 22:21 → H1EA 04-06 15:30
PROC: 10E0XZZ Delivery of Products of Conception, External Approach (ICD-10-PCS; principal; 2017-04-06)
PROC: 10907ZC Drainage of Amniotic Fluid, Therapeutic from Products of Conception, Via Natural or Artificial Opening (ICD-10-PCS; 2017-04-06)
DX: O99.214 Obesity complicating childbirth (principal); Z68.41 Body mass index [BMI] 40.0-44.9, adult; E66.9 Obesity, unspecified; O69.81X0 Labor and delivery complicated by cord around neck, without compression, not applicable or unspecified; O99.02 Anemia complicating childbirth; D64.9 Anemia, unspecified; Z37.0 Single live birth; Z3A.39 39 weeks gestation of pregnancy; Z88.0 Allergy status to penicillin; Z88.1 Allergy status to other antibiotic agents; Z88.5 Allergy status to narcotic agent; Z88.6 Allergy status to analgesic agent
CPT/HCPCS: 80307; 81001; 85025; 86900; 86901; 87086; 99283; 99285-25

== ENCOUNTER 2018-01-19 10:13 | Observation (INO) ==
[2018-01-19 10:30] VITALS: O2SAT 97
[2018-01-19] MEDS ORDERED: Lidocaine 5% Patch T-DERMAL ONE (10:59)
--- NOTE | 2018-01-19 10:59 | ED ---
HPI General Chief complaint: Fall Stated complaint: /Fall/Back Pain Complaint Time Seen by Provider: 01/19/18 10:47 History of Present Illness HPI narrative: This is a 25-week estimated gestational age 28 weeks presents for evaluation of a mechanical fall. She reports that prior to arrival she was at work standing on a 5-6 foot ladder when she fell, landing on her back. She reports that she did hit her head but denies loss of consciousness. She is complaining of pain in her left lower back. The pain is a soreness which is constant, worse with movement. She has been ambulatory. She denies any headache, numbness or tingling or weakness in extremities, loss of bowel or bladder control, saddle anesthesia. She denies abdominal pain, vaginal bleeding. Symptoms are mild to moderate. She has no other complaints at this time. Related Data Allergies Allergy/AdvReac Type Severity Reaction Status Date / Time amoxicillin Allergy Severe swelling Verified 01/19/18 10:33 hydrocodone Allergy Severe swelling Verified 01/19/18 10:33 ibuprofen Allergy Severe swelling Verified 01/19/18 10:33 penicillin G Allergy Severe swelling Verified 01/19/18 10:33 tramadol Allergy Severe swelling Verified 01/19/18 10:33 Review of Systems ROS: all other systems reviewed are negative [facility] Social History Social History Substance History: No History of Abuse Second Hand Smoke Exposure: No Smoking Status: Never smoker How Often Do You Have a Drink Containing Alcohol: Never Recent Travel in [facility] within the Last 8 Weeks: No Recent Out of Country Travel within the Last 8 Weeks: No Exam Narrative Exam Narrative: GENERAL: Well-developed well-nourished female no acute distress SKIN: Warm and dry. No abrasions, no ecchymosis HEAD: Atraumatic. Normocephalic. EYES: Pupils equal and round. No scleral icterus. No injection or drainage. CARDIOVASCULAR: Regular rate and rhythm. No murmur appreciated. RESPIRATORY: No accessory muscle use. Clear to auscultation. Breath sounds equal bilaterally. GASTROINTESTINAL: Abdomen soft, non-tender, nondistended. Hepatic and splenic margins not palpable. MUSCULOSKELETAL: No obvious deformities. There is some tenderness to palpation to the left lumbar paravertebral musculature. There is no tenderness to palpation along the cervical thoracic or lumbar midline spine. NEUROLOGICAL: Awake and alert. No obvious cranial nerve deficits. Motor grossly within normal limits. Normal speech. Course Initial Documented Vital Signs Temperature 98.4 F 01/19/18 10:27 Pulse Rate 94 H 01/19/18 10:27 Respiratory Rate 18 01/19/18 10:27 Blood Pressure 122/84 01/19/18 10:27 Pulse Oximetry 97 01/19/18 10:27 Last Documented Vital Signs Temperature 98.4 F 01/19/18 10:27 Pulse Rate 94 H 01/19/18 10:27 Respiratory Rate 18 01/19/18 10:27 Blood Pressure 122/84 01/19/18 10:27 Pulse Oximetry 97 01/19/18 10:27 Medical Decision Making SERG Attestation SERG supervised visit: Yes Attestation: I was present with the advanced practitioner during the management of this patient. I discussed the case with the advanced practitioner and agree with the findings and plan as documented in their note except as noted below. 27yF at approximately 28 weeks' gestation presenting after a fall. The patient states that she was on a ladder at work approximately 6 feet up when the ladder was "bumped into", causing her to fall backward onto her back. She denies LOC and complains of left lateral back pain. She does not take any antiplatelets or anticoagulants. She was ambulatory after this incident and denies lower extremity numbness/ tingling/ weakness, loss of bowel or bladder, abdominal pain, or saddle anesthesia. On exam, she has mild left paraspinal lumbar tenderness, no midline cervical/ thoracic/ lumbar tenderness, no step- off or deformities, no flank hematoma. I performed a bedside US which showed + movement, FHR 136 BPM. The patient is medically cleared to be observed in OB ED. APRIL 04/20/18, OB is at [facility], no complications with previous pregnancies , has received care during this . MDM Narrative Medical decision making narrative: 27-year-old female presents after mechanical fall with left-sided lower back pain. On examination she has no reproducible bony tenderness to palpation. Her pain is more on the left lumbar paravertebral musculature suggestive of contusion. Bedside ultrasound was performed by Dr. Tierra Ramirez. At this point in time the plan will be to send the patient to labor and delivery for monitoring. Medical Screen Exam Complete: Yes Emergency Medical Condition: Yes Differential Diagnosis Differential Diagnosis: Contusion, lumbar strain, fracture, retroperitoneal hematoma, spinal cord injury Discharge Plan Discharge Disposition Patient Disposition: 01 Discharge Home Discharge Condition Condition: Stable Discharge Order Discharge Orders: Discharge Order (Routine); Ordered 01/19/18 Ordered By: Con Young Discharge Details Diagnosis: Contusion, Lumbar strain Physicians Team ED Provider: Diane Darling ED Midlevel Provider: Con Young Discharge Instructions Patient Printed Instructions: Back Pain (ED) Additional Instructions: Apply ice pack to the affected area several times a day 10-15 minutes at a time. Take Tylenol as needed for pain per dosing instructions on the bottle. Follow-up with primary care physician as needed. Return for any emergent medical conditions. Status ED Status: Ready for Discharge
--- NOTE | 2018-01-19 12:00 | ED ---
History of Present Illness Primary Care Physician: No Primary Care Physician Chief Complaint: fall from 5 ft, 27 weeks gestation History of Present Illness: 27 year old female who is 27 weeks gestation, presents to the OB ED following a fall from the top of a 5 foot ladder earlier today at work. Patient states that she was reaching up to access a high shelf, when someone bumped the ladder and she fell back onto her her left buttock and low back. She admits to hitting the back of her head, but states that she did not lose consciousness denies headache at this point in time. She denies neck pain, blurry vision, nausea or vomiting. She does admit to continued left lower back pain which was evaluated in the ED. She did not receive any imaging and was given a lidocaine patch which has not helped her pain. Denies abdominal pain, contractions, gush of fluid, vaginal bleeding, or decreased movement. Denies numbness, tingling, or weakness in lower extremities, bladder or bowel incontinence. history: First , acute renal failure, which resolved following vaginal delivery at 39 weeks. Second without complications, transferred at 39 weeks. No reported delivery complications. Past medical history: none Medications: None Allergies: Amoxicillin, Vicodin, ibuprofen, penicillin, tramadol Surgical history: To take surgery at age 9. No other hospitalizations Social history: Never smoker, no EtOH or drug use. Weeks Gestation:: 27 Para: 3 : 2 Review of Systems Constitutional: Denies fever(s), Denies weakness Cardiovascular: Denies chest pain Respiratory: Denies shortness of breath Gastrointestinal: Denies abdominal pain, Denies cramping, Denies nausea, Denies vomiting Genitourinary: Denies blood in urine, Denies painful urination Musculoskeletal: Reports back pain, Reports muscle cramps, Denies muscle weakness, Denies numbness, Denies tingling PMFSH - History History Provided By: Patient - Medical History Medical History: Medical History (Last Reviewed 01/19/18 @ 11:16 by Hoa Lindquist RN) Disorder of tear duct system Patient denies medical problems - Surgical History Surgical History: Surgical History (Last Reviewed 01/19/18 @ 11:16 by Hoa Lindquist RN) No history of previous surgery - Tobacco History Second Hand Smoke Exposure: No Tobacco Use In Past 30 Days: No Smoking Status: Never smoker - Alcohol History How Often Do You Have a Drink Containing Alcohol: Never - Substance Use History Substance History: No History of Abuse - Travel History Recent Travel in the [place] Within the Last 8 Weeks: No Recent Travel Out of the Country Within the Last 8 Weeks: No - Immunization History Tetanus Immunization: <5 Years Medications and Allergies Active Medications: Active Medications Patch Removal (Remove Old Patch) 1 each T-DERMAL HS NIKKY Allergies Allergy/AdvReac Type Severity Reaction Status Date / Time amoxicillin Allergy Severe swelling Verified 01/19/18 11:15 hydrocodone Allergy Severe swelling Verified 01/19/18 11:15 ibuprofen Allergy Severe swelling Verified 01/19/18 11:15 penicillin G Allergy Severe swelling Verified 01/19/18 11:15 tramadol Allergy Severe swelling Verified 01/19/18 11:15 Home Medications Medication Instructions Recorded Confirmed Type No Known Home Medications 01/19/18 01/19/18 History Exam Vital signs: Vital Signs 01/19/18 10:27 Temperature 98.4 F Pulse Rate 94 H Respiratory Rate 18 Blood Pressure 122/84 Pulse Oximetry 97 Intake & Output 01/18/18 01/19/18 01/19/18 18:59 06:59 18:59 Weight 99.79 kg Narrative: GENERAL: Well-nourished, well-developed patient. SKIN: Warm and dry. HEAD: Normocephalic and atraumatic. EYES: No scleral icterus. No injection or drainage. ENT: No nasal drainage noted. Mucous membranes pink. Airway patent. NECK: Supple, trachea midline. No JVD. CARDIOVASCULAR: Regular rate and rhythm without murmurs, gallops, or rubs. RESPIRATORY: Breath sounds equal bilaterally. No accessory muscle use. ABDOMEN/GI: Abdomen soft, non-tender, bowel sounds present, no rebound, no guarding Gravid to 27 weeks size FHT's: Category: 1 Baseline: 140s Reactive: yes Variability: moderate Decels: none EXTREMITIES: No cyanosis or edema. No loss of sensation. BACK: Mild to moderate tenderness along left side lumbar musculature without obvious deformity or ecchymosis. Lidocaine patch in place. No midline tenderness. NEUROLOGICAL: Awake and alert. Motor and sensory grossly within normal limits. Five out of 5 muscle strength in all muscle groups. Normal speech. Assessment and Plan - Diagnosis (1) Status post fall Code(s): Z91.81 - History of falling Status: Acute (2) Lumbar strain Code(s): S39.012A - Strain of muscle, fascia and tendon of lower back, initial encounter Status: Acute - Plan 27-year-old female at 27/0 weeks gestation presenting to the ED following a fall from 5 feet, with left sided lumbar musculature pain. -Continuous monitoring. FHT category 1, reassuring while in triage. -OB Ultrasound ordered -Patient to be admitted for 23-hour observation Discharge Plan - Discharge Condition Condition: Stable - Discharge Order Discharge Orders: Discharge Order (Routine); Ordered 01/19/18 Ordered By: Con Young - Physicians Team Primary Care Provider: Primary Care Jevon,Leighann Attending Provider: Swapna Holley
[2018-01-19] MEDS ORDERED: Acetaminophen 325 MG Tablet PO PRN (12:51)
--- NOTE | 2018-01-19 13:20 | P.HPOB ---
History of Present Illness Primary Care Physician: No Primary Care Physician Chief Complaint: fall from 5 ft, 27 weeks gestation History of Present Illness: 27 year old female who is 27/0 weeks gestation, presents to the OB ED following a fall from the top of a 5 foot ladder earlier today at work. Patient states that she was reaching up to access a high shelf, when someone bumped the ladder and she fell back onto her her left buttock and low back. She admits to hitting the back of her head, but states that she did not lose consciousness denies headache at this point in time. She denies neck pain, blurry vision, nausea or vomiting. She does admit to continued left lower back pain which was evaluated in the ED. She did not receive any imaging and was given a lidocaine patch which has not helped her pain. Denies abdominal pain, contractions, gush of fluid, vaginal bleeding, or decreased movement. Denies numbness, tingling, or weakness in lower extremities, bladder or bowel incontinence. history: First , acute renal failure, which resolved following vaginal delivery at 39 weeks. Second without complications, transferred at 39 weeks. No reported delivery complications. Past medical history: none Medications: None Allergies: Amoxicillin, Vicodin, ibuprofen, penicillin, tramadol Surgical history: Tear duct surgery at age 9. No other hospitalizations Social history: Never smoker, no EtOH or drug use. Weeks Gestation:: 27 Para: 3 : 2 Review of Systems Constitutional: Denies fever(s), Denies weakness Cardiovascular: Denies chest pain Respiratory: Denies shortness of breath Gastrointestinal: Denies abdominal pain, Denies cramping, Denies nausea, Denies vomiting Genitourinary: Denies blood in urine, Denies painful urination Musculoskeletal: Reports back pain, Reports muscle cramps, Denies muscle weakness, Denies numbness, Denies tingling PMFSH - History History Provided By: Patient - Medical History Medical History: Medical History (Last Reviewed 01/19/18 @ 11:16 by Hoa Lindquist RN) Disorder of tear duct system Patient denies medical problems - Surgical History Surgical History: Surgical History (Last Reviewed 01/19/18 @ 11:16 by Hoa Lindquist RN) No history of previous surgery - Tobacco History Second Hand Smoke Exposure: No Tobacco Use In Past 30 Days: No Smoking Status: Never smoker - Alcohol History How Often Do You Have a Drink Containing Alcohol: Never - Substance Use History Substance History: No History of Abuse - Travel History Recent Travel in the [place] Within the Last 8 Weeks: No Recent Travel Out of the Country Within the Last 8 Weeks: No - Immunization History Tetanus Immunization: <5 Years Medications and Allergies Active Medications: Active Medications Patch Removal (Remove Old Patch) 1 each T-DERMAL HS NIKKY Allergies Allergy/AdvReac Type Severity Reaction Status Date / Time amoxicillin Allergy Severe swelling Verified 01/19/18 11:15 hydrocodone Allergy Severe swelling Verified 01/19/18 11:15 ibuprofen Allergy Severe swelling Verified 01/19/18 11:15 penicillin G Allergy Severe swelling Verified 01/19/18 11:15 tramadol Allergy Severe swelling Verified 01/19/18 11:15 Home Medications Medication Instructions Recorded Confirmed Type No Known Home Medications 01/19/18 01/19/18 History Exam Vital signs: Vital Signs 01/19/18 10:27 Temperature 98.4 F Pulse Rate 94 H Respiratory Rate 18 Blood Pressure 122/84 Pulse Oximetry 97 Intake & Output 01/18/18 01/19/18 01/19/18 18:59 06:59 18:59 Weight 99.79 kg Narrative: GENERAL: Well-nourished, well-developed patient. SKIN: Warm and dry. HEAD: Normocephalic and atraumatic. EYES: No scleral icterus. No injection or drainage. ENT: No nasal drainage noted. Mucous membranes pink. Airway patent. NECK: Supple, trachea midline. No JVD. CARDIOVASCULAR: Regular rate and rhythm without murmurs, gallops, or rubs. RESPIRATORY: Breath sounds equal bilaterally. No accessory muscle use. ABDOMEN/GI: Abdomen soft, non-tender, bowel sounds present, no rebound, no guarding Gravid to 27 weeks size FHT's: Category: 1 Baseline: 140 Reactive: y Variability: moderate Decels: none EXTREMITIES: No cyanosis or edema. No loss of sensation. BACK: Mild to moderate tenderness along left side lumbar musculature without obvious deformity or ecchymosis. Lidocaine patch in place. No midline tenderness. NEUROLOGICAL: Awake and alert. Motor and sensory grossly within normal limits. Five out of 5 muscle strength in all muscle groups. Normal speech. Assessment and Plan - Diagnosis (1) Status post fall Code(s): Z91.81 - History of falling Status: Acute (2) Lumbar strain Code(s): S39.012A - Strain of muscle, fascia and tendon of lower back, initial encounter Status: Acute - Plan 27-year-old female at 27/0 weeks gestation presenting to the ED following a fall from 5 feet -Patient to be admitted for 23-hour observation, after being cleared from ED. -FHT category 1, reassuring, in triage. Continuous monitoring ordered. -Ultrasound showed fetus of 27/0 weeks gestation. -CBC, T&S, UDS, GC/Chlamydia ordered -[facility] labs from [facility] in [place]. If unable to obtain, will order labs including Hepatitis panel, HIV, RPR, GC/ Chlamydia and Rubella. -Tylenol 650 mg p.o. every 4 as needed for pain ordered. -Continue Lidocaine patch q12hr as needed for pain, placed in ED sdw Dr. Garibay and Dr. Holley
[2018-01-19 14:34] LABS: Amphetamine Urine With Conf Neg (Neg); Benzodiazepine Urine With Conf Neg (Neg)
[2018-01-19 17:07] LABS: Baso % (Auto) 0.2 % (0.0-2.0); Eos % (Auto) 0.4 % (0.0-4.0); Hematocrit 32.5 % (35.0-46.0); Hemoglobin 10.6 gm/dL (11.6-15.3); Lymph # (Auto) 1.4 th/mm3 (1.0-4.8); Mean Corpuscular HGB Conc 32.7 % (32.0-36.0); Mean Corpuscular Hemoglobin 27.8 pg (27.0-34.0); Mean Corpuscular Volume 85.1 fL (80.0-100.0); Mean Platelet Volume 9.9 fL (7.0-11.0); Mono # (Auto) 0.5 th/mm3 (0.0-0.9); Mono % (Auto) 6.5 % (0.0-8.0); Neut % (Auto) 74.9 % (16.0-70.0); Platelet Count 193 th/mm3 (150-450); Red Blood Count 3.81 mil/mm3 (4.00-5.30); Red Cell Distribution Width 14.4 % (11.6-17.2)
[2018-01-19] MEDS: Acetaminophen/Codeine 300/30 MG Tablet PO PRN (17:14)
[2018-01-19] MEDS: Lidocaine 5% Patch T-DERMAL SCH (17:26)
[2018-01-19 18:01] LABS: Rubella IgG Antibody 16.1 IU/mL (10.0-500.0)
[2018-01-19 18:34] LABS: Hepatitis A IgM Antibody Nonreactive (Nonreactive); Hepatitits B Surface Antigen Nonreactive (Nonreactive)
[2018-01-19] MEDS ORDERED: Zolpidem Tartrate 5 MG Tablet PO PRN (21:00)
[2018-01-20] MEDS: Lidocaine 5% Patch T-DERMAL SCH (01:24)
[2018-01-20] MEDS: Acetaminophen/Codeine 300/30 MG Tablet PO PRN ×2 (01:24→07:33)
[2018-01-20 07:56] VITALS: BP 90/54; PULSE 90; RESP 18; TEMP 98.3
[2018-01-20] MEDS ORDERED: Prenatal Vit/Ca/Iron/Folic Acid Tablet PO SCH (09:00)
--- NOTE | 2018-01-20 10:02 | P.OBANTE ---
Subjective - Diagnosis (1) Status post fall Diagnosis: Principal (2) Lumbar strain Diagnosis: Secondary Interval History: 27 year old female who is 27/1 weeks gestation who is s/p fall from a 5 foot ladder yesterday around 10AM. She states that her left lower back is sore, slightly worse from yesterday. Mild relief with ice, rest and tylenol with codeine. She states that the lidocaine patch did not help. Vital signs stable overnight. Denies contractions, vaginal bleed, fluid loss, decreased movement, headache, chest pain, shortness of breath, leg pain or swelling. Denies numbness, tingling or weakness, bowel, or bladder incontinence. She would like to return home today. Discussed that we would like to continue to monitor FHT for 24hrs following the fall. If FHT remains reassuring, plan to discharge patient to home. Antepartum ROS: Reports: movement normal Denies: Loss of fluid, Vaginal bleeding, Contractions Objective Vital Signs and I&O: Vital Signs 01/19/18 10:27 01/19/18 11:55 01/19/18 15:30 Temperature 98.4 F 97.8 F Pulse Rate 94 H 88 Respiratory Rate 18 18 Blood Pressure 122/84 123/60 Pulse Oximetry 97 01/19/18 15:31 01/19/18 19:18 01/19/18 19:30 Temperature 97.8 F Pulse Rate 80 91 H Respiratory Rate 18 Blood Pressure 122/69 110/65 Pulse Oximetry 01/20/18 01:36 01/20/18 01:37 01/20/18 07:55 Temperature 98.3 F Pulse Rate 90 Respiratory Rate 5 L 8 L 18 Blood Pressure 90/54 L Pulse Oximetry Intake & Output 01/19/18 01/20/18 01/20/18 18:59 06:59 18:59 Weight 99.79 kg Lab and Micro Results: Laboratory Results - last 24 hr 01/19/18 01/19/18 01/19/18 12:00 12:00 15:58 WBC 8.0 RBC 3.81 L Hgb 10.6 L Hct 32.5 L MCV 85.1 MCH 27.8 MCHC 32.7 RDW 14.4 Plt Count 193 MPV 9.9 Neut % (Auto) 74.9 H Lymph % (Auto) 18.0 Wilkes % (Auto) 6.5 Eos % (Auto) 0.4 Baso % (Auto) 0.2 Neut # (Auto) 6.0 Lymph # (Auto) 1.4 Wilkes # (Auto) 0.5 Eos # (Auto) 0.0 Baso # (Auto) 0.0 WBC Differential . Differential Comment Auto diff final Urine Opiates Screen Neg Ur Barbiturates Screen Neg Ur Amphetamine Screen Neg U Benzodiazepines Scrn Neg Urine Cocaine Screen Neg U Cannabinoids Screen Neg RPR Chlam trachomat DNA PCR Not detected Hepatitis A IgM Ab Hep Bs Antigen Hep B Core IgM Ab Hep C IgG Ab HIV 1&2 Ab/P24 Ag 4thGn N.gonorrhoeae DNA (PCR) Not detected Rubella Immunity Screen Rubella Ab, Quant Blood Type Blood Type Recheck Antibody Screen 01/19/18 01/19/18 01/19/18 15:58 15:58 15:58 WBC RBC Hgb Hct MCV MCH MCHC RDW Plt Count MPV Neut % (Auto) Lymph % (Auto) Wilkes % (Auto) Eos % (Auto) Baso % (Auto) Neut # (Auto) Lymph # (Auto) Wilkes # (Auto) Eos # (Auto) Baso # (Auto) WBC Differential Differential Comment Urine Opiates Screen Ur Barbiturates Screen Ur Amphetamine Screen U Benzodiazepines Scrn Urine Cocaine Screen U Cannabinoids Screen RPR Chlam trachomat DNA PCR Hepatitis A IgM Ab Nonreactive Hep Bs Antigen Nonreactive Hep B Core IgM Ab Nonreactive Hep C IgG Ab Nonreactive HIV 1&2 Ab/P24 Ag 4thGn Nonreactive N.gonorrhoeae DNA (PCR) Rubella Immunity Screen Immune Rubella Ab, Quant 16.1 Blood Type O Positive Blood Type Recheck Not needed Antibody Screen Negative 01/19/18 15:58 WBC RBC Hgb Hct MCV MCH MCHC RDW Plt Count MPV Neut % (Auto) Lymph % (Auto) Wilkes % (Auto) Eos % (Auto) Baso % (Auto) Neut # (Auto) Lymph # (Auto) Wilkes # (Auto) Eos # (Auto) Baso # (Auto) WBC Differential Differential Comment Urine Opiates Screen Ur Barbiturates Screen Ur Amphetamine Screen U Benzodiazepines Scrn Urine Cocaine Screen U Cannabinoids Screen RPR Nonreactive Chlam trachomat DNA PCR Hepatitis A IgM Ab Hep Bs Antigen Hep B Core IgM Ab Hep C IgG Ab HIV 1&2 Ab/P24 Ag 4thGn N.gonorrhoeae DNA (PCR) Rubella Immunity Screen Rubella Ab, Quant Blood Type Blood Type Recheck Antibody Screen Physical Exam: GENERAL: Well-nourished, well-developed patient. CARDIOVASCULAR: Regular rate and rhythm without murmurs, gallops, or rubs. RESPIRATORY: Breath sounds equal bilaterally. No accessory muscle use. ABDOMEN/GI: Abdomen soft, non-tender. Gravid to 27 weeks. GENITOURINARY: FHT's: Category: 1 Baseline: 130s Reactive: yes Variability: moderate Decels: none EXTREMITIES: No cyanosis or edema, non-tender, without signs of DVT. MSK: Mild to moderate left-sided lumbar tenderness to palpation. Assessment and Plan - Diagnosis (1) Status post fall Code(s): Z91.81 - History of falling Status: Acute (2) Lumbar strain Code(s): S39.012A - Strain of muscle, fascia and tendon of lower back, initial encounter Status: Acute - Plan 27-year-old female at 27/0 weeks gestation presenting to the ED following a fall from 5 feet -Patient admitted for 23-hour observation, after being cleared from ED. -CBC WNL, UDS & GC/Chlamydia negative. - labs including Hepatitis panel, HIV, RPR, GC/Chlamydia and Rubella all WNL. -Ultrasound showed fetus of 27/0 weeks gestation. Placenta anterior without evidence of placenta previa. -FHT category 1, reassuring. FHT monitored for a total of 24 hrs. -Patient given Tylenol 650 mg p.o. every 4 as needed for pain and Tylenol with codeine #3 q6hr as needed for breakthrough pain. -Will D/C wit Tylenol w/ Cod #3 for pain control. -Zolipidem 5mg PO for anxiety while in the hospital. -Continue Lidocaine patch q12hr as needed for pain. Removed by patient overnight. sdw Dr. Garibay and Dr. Holley Discharge Planning: Patient stable for discharge to home.
== END 2018-01-20 11:36 | disposition home or self-care (01) ==
LOC: NEPD 10:13 → H2E 10:13 → NEPD 11:24 → H2E 12:03
PROVIDERS: ADMIT Obstetrics & Gynecology; ATTEND Obstetrics & Gynecology